=== PATIENT | female | born 1960 | race Caucasian/White ===

== ENCOUNTER 2019-10-27 14:24 | Emergency (ER) | payer MEDICAID ==
[~2019-10-27] VITALS: Ht 162.6 cm; Wt 96.7 kg
[~2019-10-27 14:24] MED LIST: ARIP30TA7 PO; LAMO200T10 PO; MELO7.5T12 PO; METH500T PO; OMEP20CA15 PO; TRAM50TA2 PO; TRAZ-256 PO
[2019-10-27] MEDS ORDERED: HYDROcodone/acetaminophen 5mg/325mg tablet PO ONE (17:45)
[2019-10-27] MEDS ORDERED: ondansetron 4mg rapidly disintigrating tab PO ONE (17:45)
[2019-10-27 17:46] VITALS: BP 113/66
== END 2019-10-27 17:58 | disposition home or self-care (01) ==
LOC: ER 14:25
DX: R60.0 Localized edema (principal); J44.9 Chronic obstructive pulmonary disease, unspecified; I48.91 Unspecified atrial fibrillation; F20.9 Schizophrenia, unspecified; G89.29 Other chronic pain; F12.90 Cannabis use, unspecified, uncomplicated; Z87.442 Personal history of urinary calculi; Z86.73 Personal history of transient ischemic attack (TIA), and cerebral infarction without residual deficits; Z98.51 Tubal ligation status; Z98.890 Other specified postprocedural states; Z88.1 Allergy status to other antibiotic agents; Z88.8 Allergy status to other drugs, medicaments and biological substances; Z79.899 Other long term (current) drug therapy
CPT/HCPCS: 93971; 99284

== ENCOUNTER 2019-11-20 10:59 | Inpatient (IN) | payer MEDICAID ==
[~2019-11-20] VITALS: Ht 162.6 cm; Wt 97.7 kg
[2019-11-20] MEDS: normal saline 1000ml 1,000 ML IV SCH ×2 (03:00→15:31)
[2019-11-20] MEDS ORDERED: MIDAZolam 5mg/ml 2ml vial IV ONE (11:10)
[2019-11-20] MEDS ORDERED: fentaNYL/PF 50MCG/1 ML 2ML syringe IV ONE (11:10)
--- NOTE | 2019-11-20 11:13 | NUR ---
Dr. Spring at bedside. Pt on manager cardiac. Pt given 12mg adenosine IVP by provider at 1108 Pt given 150mg amiodarone IVP by provider 1107 Pt HR not at 123
--- NOTE | 2019-11-20 11:16 | NUR ---
150 mg amio Addendum: 11/20/19 at 1116 by [email or web address] 150mg amiodarone IVP given by provider. Pt tolerated well.
--- NOTE | 2019-11-20 11:30 | NUR ---
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 PATIENT DEVELOPED ABNORMAL HEART RHYTHM OF V-TACH AND WAS CARDIOVERTED WITH 100 J PRIOR TO ARRIVAL.
[2019-11-20] MEDS ORDERED: amiodarone/D5 360MG/200ML BAG 200 ML IV SCH ×2 (11:35→12:10)
[2019-11-20] MEDS ORDERED: magnesium 2GM in 50ml NS 50 ML IV ONE (12:10)
[2019-11-20 12:41] LABS: BASOPHILS % (AUTO) 0.7 % (0-1); EOSINOPHILS # (AUTO) 0.3 X10'3 (0-0.9); EOSINOPHILS % (AUTO) 4.6 % (0-6); HEMATOCRIT 34.9 % (35.0-45.0); LYMPHOCYTES # (AUTO) 1.2 X10'3 (1.1-4.8); LYMPHOCYTES % (AUTO) 16.7 % (21-51); MEAN CORPUSCULAR HEMOGLOBIN 30.4 PG (27.0-31.0); MEAN CORPUSCULAR HGB CONC 34.4 g/dL (33.0-36.5); MEAN CORPUSCULAR VOLUME 88.5 FL (78-98); MEAN PLATELET VOLUME 8.5 FL (7.4-10.4); MONOCYTES # (AUTO) 1.1 X10'3 (0-0.9); MONOCYTES % (AUTO) 15.4 % (2-12); NEUTROPHILS # (AUTO) 4.4 X10'3 (1.8-7.7); NEUTROPHILS % (AUTO) 62.6 % (42-75); PLATELET COUNT 195 X10'3 (140-440); RED BLOOD COUNT 3.95 X10'6 (4.20-5.60); RED CELL DISTRIBUTION WIDTH 13.8 % (11.5-14.5); WHITE BLOOD COUNT 7.1 X10'3 (4.5-11.0)
[2019-11-20 12:53] LABS: ALANINE AMINOTRANSFERASE 16 U/L (12-78); ALBUMIN 3.4 G/DL (3.4-5.0); ALKALINE PHOSPHATASE 105 IU/L (46-116); ANION GAP 8 (8-16); ASPARTATE AMINO TRANSFERASE 23 U/L (10-37); BILIRUBIN,TOTAL 0.4 MG/DL (0.1-1.0); BLOOD UREA NITROGEN 9 MG/DL (7-18); BUN/CREATININE RATIO 6.9 (6.6-38.0); CALCIUM 8.2 MG/DL (8.5-10.1); CHLORIDE 109 MMOL/L (99-107); CREATININE 1.31 MG/DL (0.40-0.90); GLUCOSE 106 MG/DL (70-104); MAGNESIUM 2.1 MG/DL (1.5-2.4); POTASSIUM 3.6 MMOL/L (3.5-5.1); SODIUM 141 MMOL/L (135-145); TOTAL CARBON DIOXIDE 24.3 MMOL/L (24-32); TOTAL PROTEIN 6.7 G/DL (6.4-8.2); eGFR 42 ML/MIN
[2019-11-20] MEDS ORDERED: ESZO3TAB44 PO (13:30)
[2019-11-20] MEDS ORDERED: OXYB10TA30 PO (13:30)
[2019-11-20] MEDS ORDERED: LAMO200T10 PO (13:30)
[2019-11-20] MEDS ORDERED: ROPI2TAB7 PO (13:30)
[2019-11-20] MEDS ORDERED: GABA-532 PO (13:30)
[2019-11-20] MEDS ORDERED: LURA120T PO (13:30)
[2019-11-20] MEDS ORDERED: OMEP-50 PO (13:30)
[2019-11-20] MEDS ORDERED: METH500T6 PO (13:30)
[2019-11-20] MEDS ORDERED: PROP20TA6 PO (13:30)
[2019-11-20] MEDS ORDERED: ALBU18HF2 PO (13:30)
[2019-11-20] MEDS ORDERED: TRAZ-256 PO (13:31)
[2019-11-20] MEDS ORDERED: magnesium 4gm in 100ml NS 100 ML IV PRN (13:50)
[2019-11-20] MEDS ORDERED: acetaminophen 325mg tablet PO PRN (13:50)
[2019-11-20] MEDS ORDERED: potassium CL 10mEq/100ml bag 100 ML IV PRN ×2 (13:50)
[2019-11-20] MEDS ORDERED: ipratropium/albuterol 3ml nebule NEB PRN ×2 (13:50)
[2019-11-20] MEDS ORDERED: magnesium Cl slow-release 64mg tablet PO PRN (13:50)
[2019-11-20] MEDS ORDERED: magnesium 2GM in 50ml NS 50 ML IV PRN (13:50)
[2019-11-20] MEDS ORDERED: ondansetron/PF 4mg/2ml inj IV PRN (13:50)
[2019-11-20] MEDS ORDERED: potassium Cl 20 mEq SR tablet PO PRN ×2 (13:50)
[2019-11-20] MEDS ORDERED: oseltamivir phos 75mg capsule PO ONE (14:05)
[2019-11-20] MEDS ORDERED: acetaminophen 325mg tablet PO ONE (14:05)
--- NOTE | 2019-11-20 15:48 | NUR ---
Patient in room ED 2. I have received report from Norah WILKINSON and had the opportunity to ask questions and assume patient care. Awaiting patient's arrival to the unit.
[2019-11-20] MEDS ORDERED: cyclobenzaprine 10mg tablet PO PRN (17:25)
--- NOTE | 2019-11-20 18:18 | NUR ---
Problems reprioritized. Patient report given, questions answered & plan of care reviewed with Nena WILKINSON.
[2019-11-20 18:30] VITALS: BP 96/72
--- NOTE | 2019-11-20 18:30 | NUR ---
Patient in room PCU 3019. I have received report from Emmy WILKINSON and had the opportunity to ask questions and assume patient care.
[2019-11-20 18:55] VITALS: BP 119/67
[2019-11-20] MEDS: amiodarone/D5 360MG/200ML BAG 200 ML IV SCH ×2 (19:42→19:53)
[2019-11-20] MEDS ORDERED: propranolol 10mg tablet PO SCH (20:00)
[2019-11-20] MEDS: K and/or MAG REPLACEMENT MC SCH (20:00)
[2019-11-20] MEDS ORDERED: heparin, porcine 5000 units/ml vial SQ SCH (20:00)
[2019-11-20] MEDS: docusate sod 100mg capsule PO SCH (21:07)
[2019-11-20] MEDS: lamoTRIgine 100mg tablet PO SCH (21:08)
[2019-11-20] MEDS: traZODone 50mg tablet PO SCH (21:08)
[2019-11-20] MEDS: gabapentin 300mg capsule PO PRN (21:09)
[2019-11-20] MEDS: zolpidem 5mg tablet PO PRN (21:09)
[2019-11-20] MEDS: oxybutynin 5mg tablet PO SCH (21:10)
--- NOTE | 2019-11-20 21:34 | NUR ---
DR. Ortiz CALLED AND WOULD LIKE AMIODORONE 200 PO BID FOR 2 WEEKS THEN 200 MG PO DAILY. PLEASE MAKE SURE THIS IS ORDERED ON DC PER DR ORTIZ
[2019-11-20 22:40] VITALS: BP 110/63
[2019-11-21] VITALS (16 sets, daily range): BP systolic 98–128; BP diastolic 61–73
--- NOTE | 2019-11-21 06:16 | NUR ---
Problems reprioritized. Patient report given, questions answered & plan of care reviewed with Tomas ford.
--- NOTE | 2019-11-21 06:23 | NUR ---
Patient in room PCU 3019. I have received report from Nena WILKINSON and had the opportunity to ask questions and assume patient care.
[2019-11-21 07:01] LABS: BASOPHILS % (AUTO) 0.7 % (0-1); EOSINOPHILS # (AUTO) 0.5 X10'3 (0-0.9); EOSINOPHILS % (AUTO) 8.1 % (0-6); HEMATOCRIT 32.4 % (35.0-45.0); HEMOGLOBIN 10.9 g/dl (12.0-16.0); LYMPHOCYTES # (AUTO) 1.7 X10'3 (1.1-4.8); LYMPHOCYTES % (AUTO) 28.4 % (21-51); MEAN CORPUSCULAR HEMOGLOBIN 30.3 PG (27.0-31.0); MEAN CORPUSCULAR HGB CONC 33.6 g/dL (33.0-36.5); MEAN PLATELET VOLUME 9.2 FL (7.4-10.4); MONOCYTES # (AUTO) 0.7 X10'3 (0-0.9); MONOCYTES % (AUTO) 12.6 % (2-12); NEUTROPHILS % (AUTO) 50.2 % (42-75); PLATELET COUNT 187 X10'3 (140-440); RED CELL DISTRIBUTION WIDTH 14.3 % (11.5-14.5); WHITE BLOOD COUNT 5.9 X10'3 (4.5-11.0)
[2019-11-21 07:05] LABS: ALBUMIN 3.1 G/DL (3.4-5.0); ANION GAP 7 (8-16); BLOOD UREA NITROGEN 9 MG/DL (7-18); BUN/CREATININE RATIO 8.6 (6.6-38.0); CALCIUM 8.1 MG/DL (8.5-10.1); CHLORIDE 113 MMOL/L (99-107); CREATININE 1.05 MG/DL (0.40-0.90); GLUCOSE 93 MG/DL (70-104); MAGNESIUM 2.4 MG/DL (1.5-2.4); SODIUM 145 MMOL/L (135-145); TOTAL CARBON DIOXIDE 25.1 MMOL/L (24-32); eGFR 54 ML/MIN
[2019-11-21] MEDS: K and/or MAG REPLACEMENT MC SCH ×2 (07:15→20:00)
[2019-11-21] MEDS: ROPINIRole 1mg tablet PO SCH (07:34)
[2019-11-21] MEDS: propranolol 10mg tablet PO SCH ×2 (07:34→20:49)
[2019-11-21] MEDS: pantoprazole 40mg Tablet.DR PO SCH (07:35)
[2019-11-21] MEDS: oseltamivir phos 75mg capsule PO SCH (07:35)
[2019-11-21] MEDS: docusate sod 100mg capsule PO SCH ×2 (07:35→20:46)
[2019-11-21] MEDS: apixaban 5mg tablet PO SCH ×2 (07:35→20:47)
[2019-11-21] MEDS: lurasidone 60mg tablet PO SCH (07:35)
[2019-11-21] MEDS: lamoTRIgine 100mg tablet PO SCH ×2 (07:35→20:50)
[2019-11-21] MEDS: oxybutynin 5mg tablet PO SCH ×2 (07:36→20:46)
[2019-11-21] MEDS: amiodarone 200mg tablet PO SCH ×2 (07:37→20:49)
[2019-11-21] MEDS: normal saline 1000ml 1,000 ML IV SCH ×2 (09:50→19:50)
[2019-11-21] MEDS ORDERED: nitroGLYCERIN 0.4mg SUBLingual tab SL PRN (10:00)
[2019-11-21] MEDS ORDERED: regadenoson 0.4mg/5ml syringe IV PRN (10:00)
[2019-11-21] MEDS ORDERED: aminophylline 250mg/10ml inj. IV PRN (10:00)
[2019-11-21] MEDS ORDERED: metoprolol tartrate 1mg/ml inj IV PRN (10:00)
--- NOTE | 2019-11-21 11:37 | NUR ---
Page sent to [facility] nurse 1979 Kavita Hopson: Any chance you can DART her for me? Thank you [phone]
[2019-11-21] MEDS: acetaminophen 325mg tablet PO PRN ×2 (16:47→22:44)
--- NOTE | 2019-11-21 18:10 | NUR ---
Patient in room PCU 3019. I have received report from Emmy WILKINSON and had the opportunity to ask questions and assume patient care.
--- NOTE | 2019-11-21 18:33 | NUR ---
Problems reprioritized. Patient report given, questions answered & plan of care reviewed with Nena WILKINSON.
[2019-11-21] MEDS: gabapentin 300mg capsule PO PRN (20:47)
[2019-11-21] MEDS: traZODone 50mg tablet PO SCH (20:49)
[2019-11-21] MEDS: zolpidem 5mg tablet PO PRN (20:54)
[2019-11-21 21:25] LABS: URINE AMPHETAMINE SCREEN NEGATIVE (Neg); URINE BARBITUATE SCREEN NEGATIVE (Neg); URINE BENZODIAZEPINES SCREEN NEGATIVE (Neg); URINE CANNABINOID SCREEN POSITIVE (Neg); URINE COCAINE SCREEN NEGATIVE (Neg); URINE METHADONE SCREEN NEGATIVE (Neg); URINE OPIATE SCREEN NEGATIVE (Neg); URINE PHENCYCLIDINE SCREEN NEGATIVE (Neg)
[2019-11-22 02:00] VITALS: BP 106/45
[2019-11-22 05:06] LABS: BASOPHILS % (AUTO) 0.6 % (0-1); EOSINOPHILS # (AUTO) 0.5 X10'3 (0-0.9); EOSINOPHILS % (AUTO) 8.2 % (0-6); HEMATOCRIT 33.5 % (35.0-45.0); HEMOGLOBIN 11.5 g/dl (12.0-16.0); LYMPHOCYTES # (AUTO) 2.2 X10'3 (1.1-4.8); LYMPHOCYTES % (AUTO) 34.5 % (21-51); MEAN CORPUSCULAR HEMOGLOBIN 30.6 PG (27.0-31.0); MEAN CORPUSCULAR HGB CONC 34.3 g/dL (33.0-36.5); MEAN CORPUSCULAR VOLUME 89.4 FL (78-98); MEAN PLATELET VOLUME 8.5 FL (7.4-10.4); MONOCYTES # (AUTO) 0.6 X10'3 (0-0.9); MONOCYTES % (AUTO) 10.2 % (2-12); NEUTROPHILS # (AUTO) 2.9 X10'3 (1.8-7.7); NEUTROPHILS % (AUTO) 46.5 % (42-75); PLATELET COUNT 238 X10'3 (140-440); RED BLOOD COUNT 3.74 X10'6 (4.20-5.60); RED CELL DISTRIBUTION WIDTH 14.1 % (11.5-14.5); WHITE BLOOD COUNT 6.3 X10'3 (4.5-11.0)
[2019-11-22 05:08] LABS: ALBUMIN 3.3 G/DL (3.4-5.0); ANION GAP 6 (8-16); BLOOD UREA NITROGEN 9 MG/DL (7-18); BUN/CREATININE RATIO 7.6 (6.6-38.0); CALCIUM 8.4 MG/DL (8.5-10.1); CHLORIDE 110 MMOL/L (99-107); CREATININE 1.19 MG/DL (0.40-0.90); GLUCOSE 82 MG/DL (70-104); POTASSIUM 3.8 MMOL/L (3.5-5.1); SODIUM 144 MMOL/L (135-145); TOTAL CARBON DIOXIDE 27.7 MMOL/L (24-32); eGFR 47 ML/MIN
[2019-11-22 06:00] VITALS: BP 102/49
--- NOTE | 2019-11-22 06:25 | NUR ---
Problems reprioritized. Patient report given, questions answered & plan of care reviewed with Paradise WILKINSON.
--- NOTE | 2019-11-22 06:25 | NUR ---
Patient in room PCU 3019. I have received report from MINH Barrett and had the opportunity to ask questions and assume patient care.
[2019-11-22] MEDS: lurasidone 60mg tablet PO SCH (07:21)
[2019-11-22] MEDS: pantoprazole 40mg Tablet.DR PO SCH (07:22)
[2019-11-22] MEDS: docusate sod 100mg capsule PO SCH (07:22)
[2019-11-22] MEDS: ROPINIRole 1mg tablet PO SCH (07:22)
[2019-11-22] MEDS: amiodarone 200mg tablet PO SCH (07:22)
[2019-11-22] MEDS: oxybutynin 5mg tablet PO SCH (07:22)
[2019-11-22] MEDS: propranolol 10mg tablet PO SCH (07:23)
[2019-11-22] MEDS: lamoTRIgine 100mg tablet PO SCH (07:23)
[2019-11-22] MEDS: oseltamivir phos 75mg capsule PO SCH (07:25)
[2019-11-22] MEDS: normal saline 1000ml 1,000 ML IV SCH (07:26)
[2019-11-22] MEDS ORDERED: verapamil 2.5 mg/ml inj IV ONE (07:38)
[2019-11-22] MEDS ORDERED: nitroGLYCERIN-Tridil 50MG/D5W 250 ML IV ONE (07:38)
[2019-11-22] MEDS ORDERED: iohexol 350 MG/ML 50ML vial IV ONE (07:39)
[2019-11-22] MEDS ORDERED: LIDOcaine 1% (10mg/ml)w/preservative injection 20ml MDV ONE (07:39)
[2019-11-22] MEDS ORDERED: fentaNYL/PF 50MCG/1 ML 2ML syringe ONE (07:39)
[2019-11-22] MEDS ORDERED: midazolam 2 mg/2 ml injection ONE (07:39)
[2019-11-22] MEDS ORDERED: heparin 1,000unit/ml 10ml vial 10 ML ONE (07:39)
[2019-11-22] MEDS ORDERED: iohexol 350MG/ML 100ml bottle IV ONE (07:39)
[2019-11-22] MEDS: K and/or MAG REPLACEMENT MC SCH (08:00)
[2019-11-22] MEDS: apixaban 5mg tablet PO SCH (08:00)
[2019-11-22 11:00] VITALS: BP 106/67
[2019-11-22] MEDS ORDERED: ALBU8.5H8 INH (12:12)
[2019-11-22] MEDS ORDERED: NITR0.4T51 SL (12:12)
[2019-11-22] MEDS ORDERED: AMIO200T61 PO (12:12)
[2019-11-22] MEDS ORDERED: PROP10TA10 PO (12:12)
[2019-11-22] MEDS ORDERED: ASPI-1264 PO (12:12)
[2019-11-22] MEDS ORDERED: DOCU100C40 PO (12:12)
[2019-11-22] MEDS ORDERED: TAM75C PO (12:12)
--- NOTE | 2019-11-22 13:50 | NUR ---
Patient stable for discharge per MD orders. All instructions were discussed with patient and daughter, all questions were answered. Informed patient to follow up with primary care physician within 2-3 days, make an appointment with a client experience consultant, also informed them that Dr Martins wanted me to instruct patient and daughter that patient will need a pulmonary function test once a year. Informed that prescriptions were e-scripted over to [facility]. All belongings were collected and sent with patient. PIV discontinued, cannula intact. Tele discontinued, television actor notified. I wheeled the patient to lobby and assisted into her daughter's vehicle.
[2019-11-23 07:21] LABS: ISTAT Hct MIX 31 %PCV (35-48); ISTAT O2 SATURATION MIX VENOUS 59 % (60-80); ISTAT SOURCE MIX
== END 2019-11-22 13:50 | disposition home or self-care (01) | DRG 192 ==
LOC: ER 11:00 → ED HOLD 13:50 → UNDOADMIN 14:08 → PCU 3S 16:10 → ED HOLD 16:10
PROVIDERS: ADMIT Internal Medicine; ATTEND Family Medicine
PROC: 4A023N8 Measurement of Cardiac Sampling and Pressure, Bilateral, Percutaneous Approach (ICD-10-PCS; principal; 2019-11-21)
PROC: B2111ZZ Fluoroscopy of Multiple Coronary Arteries using Low Osmolar Contrast (ICD-10-PCS; 2019-11-21)
PROC: B2151ZZ Fluoroscopy of Left Heart using Low Osmolar Contrast (ICD-10-PCS; 2019-11-21)
PROC: 4A02XM4 Measurement of Cardiac Total Activity, External Approach (ICD-10-PCS; 2019-11-21)
PROC: 3E033HZ Introduction of Radioactive Substance into Peripheral Vein, Percutaneous Approach (ICD-10-PCS; 2019-11-21)
DX: I47.1 Supraventricular tachycardia (principal); F20.9 Schizophrenia, unspecified; I48.92 Unspecified atrial flutter; Z86.74 Personal history of sudden cardiac arrest; G25.81 Restless legs syndrome; I48.91 Unspecified atrial fibrillation; F31.9 Bipolar disorder, unspecified; G43.909 Migraine, unspecified, not intractable, without status migrainosus; G89.29 Other chronic pain; I10 Essential (primary) hypertension; I44.7 Left bundle-branch block, unspecified; J10.1 Influenza due to other identified influenza virus with other respiratory manifestations; J44.9 Chronic obstructive pulmonary disease, unspecified; K21.9 Gastro-esophageal reflux disease without esophagitis; R32 Unspecified urinary incontinence; Z79.82 Long term (current) use of aspirin; Z79.899 Other long term (current) drug therapy; Z86.73 Personal history of transient ischemic attack (TIA), and cerebral infarction without residual deficits; Z87.442 Personal history of urinary calculi; Z87.891 Personal history of nicotine dependence; Z98.51 Tubal ligation status
CPT/HCPCS: 36415; 71045; 78452; 80048; 80053; 80305; 82803; 83735; 84443; 84484; 85014; 85025; 85347; 87502; 87503; 93005; 93017; 93306; 93460; 94760; 96365; 96368; 99152; 99153; 99291; A4620; A4663; A5120; A6258; A9500; C1769; C1894; G0378; J1644; J2001; J2250; J2405; J2785; J3010; J3475; J3490; J7030; J7040; Q9967

== ENCOUNTER 2020-01-30 14:39 | Emergency (ER) | payer MEDICAID ==
[~2020-01-30] VITALS: Ht 162.6 cm; Wt 92.2 kg
[~2020-01-30 14:39] MED LIST changes: +ALBU8.5H8 INH; +APIX5TAB3 PO; -ARIP30TA7 PO; +DOCU100C40 PO; +ESZO3TAB44 PO; +FLEC100T35 PO; +LURA120T PO; -MELO7.5T12 PO; -METH500T PO; +METH500T6 PO; +NITR0.4T51 SL; +OMEP-50 PO; -OMEP20CA15 PO; +OXYB10TA30 PO; +PROP10TA10 PO; -TRAM50TA2 PO
[2020-01-30 14:41] VITALS: BP 112/63
[2020-01-30] MEDS ORDERED: HYDR-3965 PO (14:58)
[2020-01-30] MEDS ORDERED: ONDA4TAB6 PO (14:58)
[2020-01-30] MEDS ORDERED: METH4TAB81 PO (14:58)
[2020-01-30] MEDS ORDERED: AMOX500C2 PO (14:58)
[2020-01-30] MEDS ORDERED: acetaminophen 325mg tablet PO ONE (15:00)
== END 2020-01-30 15:31 | disposition home or self-care (01) ==
LOC: ER 14:40
DX: K08.89 Other specified disorders of teeth and supporting structures (principal); I96 Gangrene, not elsewhere classified; I48.91 Unspecified atrial fibrillation; J44.9 Chronic obstructive pulmonary disease, unspecified; K21.9 Gastro-esophageal reflux disease without esophagitis; G89.29 Other chronic pain; F32.9 Major depressive disorder, single episode, unspecified; F20.9 Schizophrenia, unspecified; F12.90 Cannabis use, unspecified, uncomplicated; Z86.73 Personal history of transient ischemic attack (TIA), and cerebral infarction without residual deficits; Z87.442 Personal history of urinary calculi; Z87.440 Personal history of urinary (tract) infections; Z98.51 Tubal ligation status; Z98.890 Other specified postprocedural states; Z88.1 Allergy status to other antibiotic agents; Z79.2 Long term (current) use of antibiotics; Z79.899 Other long term (current) drug therapy
CPT/HCPCS: 99283

== ENCOUNTER 2020-02-22 05:26 | Day surgery (SDC) | payer MEDICAID ==
[2020-01-17 16:32] LABS: BASOPHILS % (AUTO) 0.5 % (0-1); EOSINOPHILS # (AUTO) 0.2 X10'3 (0-0.9); EOSINOPHILS % (AUTO) 2.4 % (0-6); LYMPHOCYTES # (AUTO) 2.3 X10'3 (1.1-4.8); MEAN CORPUSCULAR HEMOGLOBIN 29.4 PG (27.0-31.0); MEAN CORPUSCULAR HGB CONC 32.8 g/dL (33.0-36.5); MEAN CORPUSCULAR VOLUME 89.7 FL (78-98); MEAN PLATELET VOLUME 9.1 FL (7.4-10.4); MONOCYTES # (AUTO) 0.6 X10'3 (0-0.9); MONOCYTES % (AUTO) 6.8 % (2-12); NEUTROPHILS # (AUTO) 5.7 X10'3 (1.8-7.7); NEUTROPHILS % (AUTO) 64.3 % (42-75); PRE OP HEMATOCRIT 40.6 % (35.0-45.0); PRE OP HEMOGLOBIN 13.3 g/dL (12.0-16.0); PRE OP PLATELET COUNT 258 X10'3 (140-440); RED BLOOD COUNT 4.53 X10'6 (4.20-5.60); RED CELL DISTRIBUTION WIDTH 14.7 % (11.5-14.5)
[2020-01-17 16:55] LABS: PRE OP INR 1.1 INR; PRE OP PROTIME 11.2 SECONDS (9.0-12.0)
[2020-01-17 17:24] LABS: ALBUMIN 3.9 G/DL (3.4-5.0); ALBUMIN/GLOBULIN RATIO 1.1 (1.1-1.5); ALKALINE PHOSPHATASE 119 IU/L (46-116); BLOOD UREA NITROGEN 15 MG/DL (7-18); BUN/CREATININE RATIO 10.7 (6.6-38.0); CALCIUM 9.2 MG/DL (8.5-10.1); CHLORIDE 104 MMOL/L (99-107); PRE OP ALT 18 U/L (30-65); PRE OP ANION GAP 8 (8-16); PRE OP AST 11 U/L (10-37); PRE OP BILIRUB, TOTAL 0.4 MG/DL (0.0-1.0); PRE OP GLUCOSE 76 MG/DL (70-104); PRE OP POTASSIUM 3.6 MMOL/L (3.4-5.1); PRE OP SODIUM 140 MMOL/L (135-145); TOTAL CARBON DIOXIDE 28.5 MMOL/L (24-32); TOTAL PROTEIN 7.4 G/DL (6.4-8.2); eGFR 39 ML/MIN
[2020-02-16 10:22] LABS: BASOPHILS # (AUTO) 0.1 X10'3 (0-0.2); BASOPHILS % (AUTO) 0.7 % (0-1); EOSINOPHILS # (AUTO) 0.3 X10'3 (0-0.9); EOSINOPHILS % (AUTO) 3.8 % (0-6); LYMPHOCYTES # (AUTO) 1.6 X10'3 (1.1-4.8); LYMPHOCYTES % (AUTO) 17.5 % (21-51); MEAN CORPUSCULAR HEMOGLOBIN 30.2 PG (27.0-31.0); MEAN CORPUSCULAR HGB CONC 33.8 g/dL (33.0-36.5); MEAN CORPUSCULAR VOLUME 89.5 FL (78-98); MEAN PLATELET VOLUME 8.7 FL (7.4-10.4); MONOCYTES # (AUTO) 0.7 X10'3 (0-0.9); MONOCYTES % (AUTO) 7.6 % (2-12); NEUTROPHILS # (AUTO) 6.3 X10'3 (1.8-7.7); NEUTROPHILS % (AUTO) 70.4 % (42-75); PRE OP HEMATOCRIT 38.3 % (35.0-45.0); PRE OP HEMOGLOBIN 12.9 g/dL (12.0-16.0); PRE OP PLATELET COUNT 260 X10'3 (140-440); RED BLOOD COUNT 4.28 X10'6 (4.20-5.60); RED CELL DISTRIBUTION WIDTH 15.1 % (11.5-14.5)
[2020-02-16 10:46] LABS: ALBUMIN 3.6 G/DL (3.4-5.0); ALKALINE PHOSPHATASE 97 IU/L (46-116); BLOOD UREA NITROGEN 14 MG/DL (7-18); BUN/CREATININE RATIO 10.9 (6.6-38.0); CALCIUM 8.8 MG/DL (8.5-10.1); CHLORIDE 106 MMOL/L (99-107); CREATININE 1.29 MG/DL (0.40-0.90); PRE OP ALT 15 U/L (30-65); PRE OP ANION GAP 6 (8-16); PRE OP AST 15 U/L (10-37); PRE OP BILIRUB, TOTAL 0.4 MG/DL (0.0-1.0); PRE OP GLUCOSE 89 MG/DL (70-104); PRE OP POTASSIUM 4.3 MMOL/L (3.4-5.1); PRE OP SODIUM 140 MMOL/L (135-145); TOTAL CARBON DIOXIDE 28.4 MMOL/L (24-32); TOTAL PROTEIN 7.1 G/DL (6.4-8.2); eGFR 43 ML/MIN
[~2020-02-22] VITALS: Ht 162.6 cm; Wt 90.3 kg
[2020-02-22] VITALS (10 sets, daily range): BP systolic 104–124; BP diastolic 61–77
[~2020-02-22 05:26] MED LIST changes: +ringers solution, lacted 1,000 ML IV SCH
[2020-02-22] MEDS ORDERED: DOCUMENT DATE & TIME OF BETA-BLOCKER PO ONE (05:30)
[2020-02-22] MEDS ORDERED: clindamycin-Cleocin 900mg/D5W 50 ML IV ONE (05:30)
[2020-02-22] MEDS ORDERED: famotidine 20mg tablet PO ONE (05:30)
[2020-02-22] MEDS ORDERED: vancomycin 1,500 MG in NS 500ml IV soln IV ONE (05:30)
[2020-02-22] MEDS ORDERED: LIDOcaine 1% (10mg/ml) 2ml vial ONE (06:19)
[2020-02-22] MEDS ORDERED: BUPIVAcaine/PF 2.5 mg/ml (0.25%) 30ml vial ONE (06:48)
[2020-02-22] MEDS ORDERED: triamcinolone acetonide 40mg/ml inj ONE (06:48)
[2020-02-22 07:18] LABS: PRE OP PROTIME 10.2 SECONDS (9.0-12.0)
[2020-02-22] MEDS ORDERED: sevoflurane 250ml liquid IH ONE (07:20)
[2020-02-22] MEDS ORDERED: fentaNYL/PF 50MCG/1 ML 2ML syringe ONE (07:23)
[2020-02-22] MEDS ORDERED: midazolam 2 mg/2 ml injection ONE (07:23)
[2020-02-22] MEDS ORDERED: LIDOcaine 2% (20mg/ml) 5ml vial ONE (07:24)
[2020-02-22] MEDS ORDERED: propofol inj 20 ML IV ONE (07:24)
[2020-02-22] MEDS ORDERED: dexamethasone sod phosphate 4mg/ml inj. ONE (07:34)
[2020-02-22] MEDS ORDERED: ondansetron/PF 4mg/2ml inj ONE (07:34)
[2020-02-22] MEDS ORDERED: ondansetron/PF 4mg/2ml inj IV PRN (07:50)
[2020-02-22] MEDS ORDERED: morphine 2 MG/ML inj. syringe IV PRN (07:50)
[2020-02-22] MEDS ORDERED: ringers solution, lacted 1,000 ML IV SCH (07:50)
[2020-02-22] MEDS ORDERED: morphine 4 MG/ML inj SYRINge IV PRN (07:50)
[2020-02-22] MEDS ORDERED: proCHLORperazine 10 MG/2 ml inj IV PRN (07:50)
[2020-02-22] MEDS ORDERED: meperidine/PF 25mg/ml syringe IV PRN ×3 (07:50)
[2020-02-22] MEDS ORDERED: ketorolac trometh. 30mg/ml inj. ONE (08:17)
--- NOTE | 2020-02-22 08:35 | NUR ---
Received from OR via BED, accompanied by Anesthesiologist DR PHILLIPS-- and report given by Anesthesiolgist. PATIENT A&OX4, DENIES PAIN, V/S WNL, NEUROVASCULAR CHECKS INTACT, 20G PIV LUE, SCD ON, DRESSING LEFT KNEE CDI
--- NOTE | 2020-02-22 09:45 | NUR ---
PATIENT A&OX4, DENIES PAIN, V/S WNL, NEUROVASCULAR CHECKS INTACT, 20G PIV LUE D/C, SCD OFF, DRESSING TO LEFT KNEE CDI ELEVATED WITH ICEBAG APPLIED. I HAVE REVIEWED D/C INSTRUCTIONS WITH PATIENT AND FAMILY AND THEY HAVE VERBALIZED UNDERSTANDING. PATIENT D/C HOME WITH ALL BELONGINGS AND FAMILY GAVE TRANSPORT HOME.
== END 2020-02-22 09:45 | disposition home or self-care (01) ==
LOC: PAS 05:26
PROVIDERS: ATTEND Orthopaedic Surgery
DX: S83.272A Complex tear of lateral meniscus, current injury, left knee, initial encounter (principal); S83.232A Complex tear of medial meniscus, current injury, left knee, initial encounter; M94.262 Chondromalacia, left knee; F41.9 Anxiety disorder, unspecified; G40.909 Epilepsy, unspecified, not intractable, without status epilepticus; K21.9 Gastro-esophageal reflux disease without esophagitis; G47.33 Obstructive sleep apnea (adult) (pediatric); M17.0 Bilateral primary osteoarthritis of knee; I25.10 Atherosclerotic heart disease of native coronary artery without angina pectoris; G43.909 Migraine, unspecified, not intractable, without status migrainosus; I10 Essential (primary) hypertension; I25.2 Old myocardial infarction; F31.9 Bipolar disorder, unspecified; E66.01 Morbid (severe) obesity due to excess calories; Z68.35 Body mass index [BMI] 35.0-35.9, adult; I48.91 Unspecified atrial fibrillation; Z88.1 Allergy status to other antibiotic agents; Z79.899 Other long term (current) drug therapy; Z11.59 Encounter for screening for other viral diseases; Z79.01 Long term (current) use of anticoagulants; Z87.891 Personal history of nicotine dependence; Z82.49 Family history of ischemic heart disease and other diseases of the circulatory system; X58.XXXA Exposure to other specified factors, initial encounter; Y93.89 Activity, other specified; Y92.89 Other specified places as the place of occurrence of the external cause; Y99.8 Other external cause status
CPT/HCPCS: 29873; 29879; 29880; 36415; 71046; 80053; 82948; 85025; 85610; 85730; 87635; 93005; J1100; J1885; J2001; J2250; J2405; J2704; J3010; J3301; J3370; J3490; J7040; U0003; A4215; A4618; A6250; A6449; A7000; J7120

== ENCOUNTER 2020-03-28 05:48 | Emergency (ER) | payer MEDICAID ==
[~2020-03-28] VITALS: Ht 162.6 cm; Wt 86.4 kg
[~2020-03-28 05:48] MED LIST changes: -ringers solution, lacted 1,000 ML IV SCH
[2020-03-28] MEDS ORDERED: LIDOcaine 1% W/epiNEPHrine 1:200,000 10ml vial IJ ONE (06:05)
[2020-03-28] MEDS ORDERED: TETanus/Pertussis (Acell)/Diphther VAC/PF (Tdap-Adult) 0.5ml syringe IMVAC ONE (06:05)
[2020-03-28] MEDS ORDERED: SULF1TAB49 PO (06:51)
[2020-03-28] MEDS ORDERED: bacitracin 15gm ointment TP ONE (07:10)
[2020-03-28] MEDS ORDERED: sulfamethoxazole/trimethoprim DS (800/160mg) tablet PO ONE (07:10)
[2020-03-28] MEDS ORDERED: acetaminophen 325mg tablet PO ONE (07:10)
[2020-03-28 08:47] VITALS: BP 146/85
== END 2020-03-28 07:30 | disposition home or self-care (01) ==
LOC: ER 05:49
DX: S61.211A Laceration without foreign body of left index finger without damage to nail, initial encounter (principal); S61.231A Puncture wound without foreign body of left index finger without damage to nail, initial encounter; I48.91 Unspecified atrial fibrillation; J44.9 Chronic obstructive pulmonary disease, unspecified; K21.9 Gastro-esophageal reflux disease without esophagitis; G89.29 Other chronic pain; F32.9 Major depressive disorder, single episode, unspecified; F20.9 Schizophrenia, unspecified; F12.90 Cannabis use, unspecified, uncomplicated; Z98.51 Tubal ligation status; Z98.890 Other specified postprocedural states; Z86.73 Personal history of transient ischemic attack (TIA), and cerebral infarction without residual deficits; Z87.442 Personal history of urinary calculi; Z88.1 Allergy status to other antibiotic agents; Z79.01 Long term (current) use of anticoagulants; Z79.899 Other long term (current) drug therapy; W26.0XXA Contact with knife, initial encounter; Y93.89 Activity, other specified; Y92.89 Other specified places as the place of occurrence of the external cause; Y99.8 Other external cause status
CPT/HCPCS: 12001; 73140; 90471; 90715; 99284

== ENCOUNTER 2020-06-20 05:36 | Day surgery (SDC) | payer MEDICAID ==
[2020-06-14 11:03] LABS: BASOPHILS # (AUTO) 0.1 X10'3 (0-0.2); BASOPHILS % (AUTO) 0.7 % (0-1); EOSINOPHILS # (AUTO) 0.4 X10'3 (0-0.9); EOSINOPHILS % (AUTO) 4.5 % (0-6); LYMPHOCYTES # (AUTO) 1.8 X10'3 (1.1-4.8); LYMPHOCYTES % (AUTO) 21.2 % (21-51); MEAN CORPUSCULAR HEMOGLOBIN 31.3 PG (27.0-31.0); MEAN CORPUSCULAR VOLUME 92.1 FL (78-98); MEAN PLATELET VOLUME 8.9 FL (7.4-10.4); MONOCYTES # (AUTO) 0.7 X10'3 (0-0.9); MONOCYTES % (AUTO) 7.8 % (2-12); NEUTROPHILS # (AUTO) 5.7 X10'3 (1.8-7.7); NEUTROPHILS % (AUTO) 65.8 % (42-75); PRE OP HEMATOCRIT 37.4 % (35.0-45.0); PRE OP HEMOGLOBIN 12.7 g/dL (12.0-16.0); PRE OP PLATELET COUNT 253 X10'3 (140-440); RED BLOOD COUNT 4.06 X10'6 (4.20-5.60); RED CELL DISTRIBUTION WIDTH 13.9 % (11.5-14.5)
[2020-06-14 11:09] LABS: PRE OP PROTIME 10.2 SECONDS (9.0-12.0)
[2020-06-14 11:11] LABS: ALBUMIN 3.8 G/DL (3.4-5.0); ALBUMIN/GLOBULIN RATIO 1.1 (1.1-1.5); ALKALINE PHOSPHATASE 106 IU/L (46-116); BLOOD UREA NITROGEN 13 MG/DL (7-18); BUN/CREATININE RATIO 9.9 (6.6-38.0); CALCIUM 9.3 MG/DL (8.5-10.1); CHLORIDE 104 MMOL/L (99-107); CREATININE 1.31 MG/DL (0.40-0.90); PRE OP ALT 21 U/L (30-65); PRE OP ANION GAP 6 (8-16); PRE OP AST 13 U/L (10-37); PRE OP BILIRUB, TOTAL 0.3 MG/DL (0.0-1.0); PRE OP GLUCOSE 94 MG/DL (70-104); PRE OP POTASSIUM 3.9 MMOL/L (3.4-5.1); PRE OP SODIUM 142 MMOL/L (135-145); TOTAL CARBON DIOXIDE 32.4 MMOL/L (24-32); TOTAL PROTEIN 7.2 G/DL (6.4-8.2); eGFR 42 ML/MIN
[~2020-06-20] VITALS: Ht 162.6 cm; Wt 86.3 kg
[2020-06-20] VITALS (8 sets, daily range): BP systolic 101–111; BP diastolic 47–62
[~2020-06-20 05:36] MED LIST changes: +ATOR20TA66 PO; -DOCU100C40 PO; +DOCUMENT DATE & TIME OF BETA-BLOCKER PO ONE; -LURA120T PO; +MESSAGE TO NURSING IV ONE; +albuterol 2.5 MG/3 ML nebule NEB ONE; +famotidine 20mg tablet PO ONE; +ringers solution, lacted 1,000 ML IV SCH; +vancomycin 1,500 MG in NS 300ml IV soln IV ONE
[2020-06-20] MEDS ORDERED: levoFLOXACIN-Levaquin 500mg/D5 100 ML IV ONE (06:30)
[2020-06-20] MEDS ORDERED: BUPIVAcaine/PF 2.5mg/ml (0.25%) 10ml vial ONE (06:48)
[2020-06-20] MEDS ORDERED: triamcinolone acetonide 40mg/ml inj ONE (06:48)
[2020-06-20] MEDS ORDERED: sevoflurane 250ml liquid IH ONE (07:08)
[2020-06-20] MEDS ORDERED: rocuronium 10mg/ml inj IV ONE (07:08)
[2020-06-20] MEDS ORDERED: fentaNYL/PF 50MCG/1 ML 2ML syringe ONE (07:13)
[2020-06-20] MEDS ORDERED: proCHLORperazine 10 MG/2 ml inj IV PRN (08:15)
[2020-06-20] MEDS ORDERED: acetaminophen 1,000mg/100ml IV 100 ML IV PRN (08:15)
[2020-06-20] MEDS ORDERED: morphine 4 MG/ML inj SYRINge IV PRN (08:15)
[2020-06-20] MEDS ORDERED: ringers solution, lacted 1,000 ML IV SCH (08:15)
[2020-06-20] MEDS ORDERED: hydrALAZINE 20mg/ml inj. IV PRN (08:15)
[2020-06-20] MEDS ORDERED: meperidine/PF 25mg/ml syringe IV PRN ×3 (08:15)
[2020-06-20] MEDS ORDERED: ondansetron/PF 4mg/2ml inj IV PRN (08:15)
[2020-06-20] MEDS ORDERED: labetalol 20mg/4ml (5mg/ml) syringe IV PRN (08:15)
[2020-06-20] MEDS ORDERED: morphine 2 MG/ML inj. syringe IV PRN (08:15)
[2020-06-20] MEDS ORDERED: propofol inj 20 ML IV ONE (08:55)
[2020-06-20] MEDS ORDERED: ROPIVAcaine 0.5% (5mg/ml) 30ml vial ONE (08:55)
[2020-06-20] MEDS ORDERED: LIDOcaine 1%/PF 5ML 10 MG/ML VIAL ONE (08:55)
[2020-06-20] MEDS ORDERED: midazolam 2 mg/2 ml injection ONE (08:55)
[2020-06-20] MEDS ORDERED: LIDOcaine 2% (20mg/ml) 5ml vial ONE (08:55)
[2020-06-20] MEDS ORDERED: dexamethasone sod phosphate 4mg/ml inj. ONE (08:56)
[2020-06-20] MEDS ORDERED: ePHEDrine 50MG/ML INJ. ONE (08:56)
[2020-06-20] MEDS ORDERED: ondansetron/PF 4mg/2ml inj ONE (08:57)
--- NOTE | 2020-06-20 09:56 | NUR ---
Received from OR via [facility] , accompanied by Anesthesiologist WESTLEY and report given by Anesthesiolgist. PATIENT WITH ANTERIOR SHOULDER DRESSING THAT IS CDI. + RADIAL PULSE TO RIGHT UE. SHOULDER IMMOBILIZER PRESENT. 20G PIOV IN LEFT UE RUNNING LR AT 100. NON VERBAL PAIN SCALE USED. 0 PAIN. PATIENT WITH VSS. 20G PIV IN LEFT UE RUNNING LR AT 100. Addendum: 06/20/20 at 1006 by Jesse Bliss RN, RN Amended: Links added.
--- NOTE | 2020-06-20 11:06 | NUR ---
PATIENT AND FAMILY AND THEY HAVE VERBALIZED UNDERSTANDING, OPPORTUNITY TO ASK QUESTIONS GIVEN AND PATIENT COMFORTABLE WITH DC. IV TAKEN OUT WITHOUT COMPLICATION. PATIENT HAS MET ALL DC CRITERIA FOR DC HOME. I HAVE REVIEWED D/C INSTRUCTIONS WITH OUT VIA WHEELCHAIR WHERE PATIENT WAS TAKEN HOME WITH ALL BELONGINGS. FAMILY GAVE PATIENT TRANSPORT HOME. DISCUSSED WITH PATIENT AND DAUGHTER ABOUT USE OF INCENTIVE SPIROMETER. BRACE AND ALL DC INSTRUCTIONS. ALL QUESTIONS ANSWERED. Addendum: 06/20/20 at 1138 by Jesse Juarez - MINH WILKINSON Amended: Links added.
== END 2020-06-20 11:06 | disposition home or self-care (01) ==
LOC: PAS 05:36
PROVIDERS: ATTEND Orthopaedic Surgery
DX: S46.011A Strain of muscle(s) and tendon(s) of the rotator cuff of right shoulder, initial encounter (principal); S43.431A Superior glenoid labrum lesion of right shoulder, initial encounter; M19.011 Primary osteoarthritis, right shoulder; I10 Essential (primary) hypertension; I25.2 Old myocardial infarction; I25.10 Atherosclerotic heart disease of native coronary artery without angina pectoris; F32.9 Major depressive disorder, single episode, unspecified; F41.9 Anxiety disorder, unspecified; G47.33 Obstructive sleep apnea (adult) (pediatric); G43.909 Migraine, unspecified, not intractable, without status migrainosus; K21.9 Gastro-esophageal reflux disease without esophagitis; G89.18 Other acute postprocedural pain; Z91.5 Personal history of self-harm; Z87.442 Personal history of urinary calculi; Z88.8 Allergy status to other drugs, medicaments and biological substances; Z88.1 Allergy status to other antibiotic agents; Z72.89 Other problems related to lifestyle; Z86.73 Personal history of transient ischemic attack (TIA), and cerebral infarction without residual deficits; Z87.891 Personal history of nicotine dependence; Z98.890 Other specified postprocedural states; X58.XXXA Exposure to other specified factors, initial encounter; Y93.89 Activity, other specified; Y92.89 Other specified places as the place of occurrence of the external cause; Y99.8 Other external cause status; Z20.828 Contact with and (suspected) exposure to other viral communicable diseases; M25.511 Pain in right shoulder
CPT/HCPCS: 23412; 29807; 29824; 29826; 36415; 64415; 76942; 80053; 82948; 85025; 85610; 85730; 87635; C1713; J1100; J1956; J2001; J2250; J2405; J2704; J3010; J3301; J3370; J3490; J7040; J7120; A4215; A4565; A4618; A6250; A6449; A7000; J2795

== ENCOUNTER 2020-12-09 15:01 | Emergency (ER) | payer MEDICAID ==
[~2020-12-09] VITALS: Ht 165.1 cm; Wt 75.8 kg
[~2020-12-09 15:01] MED LIST changes: -DOCUMENT DATE & TIME OF BETA-BLOCKER PO ONE; -MESSAGE TO NURSING IV ONE; +METH-797 PO; -METH500T6 PO; -albuterol 2.5 MG/3 ML nebule NEB ONE; -famotidine 20mg tablet PO ONE; -ringers solution, lacted 1,000 ML IV SCH; -vancomycin 1,500 MG in NS 300ml IV soln IV ONE
[2020-12-09 17:07] LABS: BASOPHILS % (AUTO) 0.4 % (0-1); EOSINOPHILS # (AUTO) 0.2 X10'3 (0-0.9); HEMATOCRIT 39.7 % (35.0-45.0); HEMOGLOBIN 13.2 g/dl (12.0-16.0); LYMPHOCYTES % (AUTO) 18.7 % (21-51); MEAN CORPUSCULAR HEMOGLOBIN 30.8 PG (27.0-31.0); MEAN CORPUSCULAR HGB CONC 33.4 g/dL (33.0-36.5); MEAN CORPUSCULAR VOLUME 92.4 FL (78-98); MEAN PLATELET VOLUME 9.1 FL (7.4-10.4); MONOCYTES # (AUTO) 0.7 X10'3 (0-0.9); MONOCYTES % (AUTO) 6.6 % (2-12); NEUTROPHILS # (AUTO) 7.7 X10'3 (1.8-7.7); NEUTROPHILS % (AUTO) 72.3 % (42-75); PLATELET COUNT 218 X10'3 (140-440); RED CELL DISTRIBUTION WIDTH 13.8 % (11.5-14.5); WHITE BLOOD COUNT 10.6 X10'3 (4.5-11.0)
[2020-12-09 17:13] VITALS: BP 124/74
[2020-12-09 17:21] LABS: ALANINE AMINOTRANSFERASE 19 U/L (12-78); ALBUMIN 4.3 G/DL (3.4-5.0); ALBUMIN/GLOBULIN RATIO 1.3 (1.1-1.5); ALKALINE PHOSPHATASE 107 IU/L (46-116); ANION GAP 9 (8-16); ASPARTATE AMINO TRANSFERASE 16 U/L (10-37); BILIRUBIN,TOTAL 0.4 MG/DL (0.1-1.0); BLOOD UREA NITROGEN 17 MG/DL (7-18); CALCIUM 9.7 MG/DL (8.5-10.1); CHLORIDE 108 MMOL/L (99-107); CREATININE 1.13 MG/DL (0.40-0.90); GLUCOSE 87 MG/DL (70-104); MAGNESIUM 2.2 MG/DL (1.5-2.4); POTASSIUM 3.6 MMOL/L (3.5-5.1); SODIUM 148 MMOL/L (135-145); TOTAL CARBON DIOXIDE 31.2 MMOL/L (24-32); TOTAL PROTEIN 7.7 G/DL (6.4-8.2); eGFR 49 ML/MIN
--- NOTE | 2020-12-09 19:07 | NUR ---
Pt resting in bed talking on phone. Cup of water given to pt per pt request.
[2020-12-09] MEDS ORDERED: normal saline 1000ML IV soln IVB ONE (19:30)
[2020-12-09] MEDS ORDERED: ketorolac tromethamine 15mg/ml inj. IV ONE (21:10)
== END 2020-12-09 21:23 | disposition home or self-care (01) ==
LOC: ER 15:02
DX: R55 Syncope and collapse (principal); R20.0 Anesthesia of skin; R53.1 Weakness; I48.91 Unspecified atrial fibrillation; J44.9 Chronic obstructive pulmonary disease, unspecified; K21.9 Gastro-esophageal reflux disease without esophagitis; G89.29 Other chronic pain; F12.90 Cannabis use, unspecified, uncomplicated; Z86.73 Personal history of transient ischemic attack (TIA), and cerebral infarction without residual deficits; Z87.442 Personal history of urinary calculi; Z87.440 Personal history of urinary (tract) infections; Z98.51 Tubal ligation status; Z79.01 Long term (current) use of anticoagulants
CPT/HCPCS: 36415; 71045; 80053; 83735; 84484; 85025; 93005; 96361; 96374; 99285; J1885; J7030

== ENCOUNTER 2021-03-06 13:49 | Emergency (ER) | payer MEDICAID ==
[~2021-03-06] VITALS: Ht 162.6 cm; Wt 69.5 kg
[2021-03-06 14:44] LABS: BASOPHILS # (AUTO) 0.1 X10'3 (0-0.2); EOSINOPHILS # (AUTO) 0.5 X10'3 (0-0.9); EOSINOPHILS % (AUTO) 5.8 % (0-6); HEMATOCRIT 38.2 % (35.0-45.0); HEMOGLOBIN 12.9 g/dl (12.0-16.0); LYMPHOCYTES # (AUTO) 2.3 X10'3 (1.1-4.8); LYMPHOCYTES % (AUTO) 29.3 % (21-51); MEAN CORPUSCULAR HEMOGLOBIN 31.2 PG (27.0-31.0); MEAN CORPUSCULAR HGB CONC 33.9 g/dL (33.0-36.5); MEAN CORPUSCULAR VOLUME 92.2 FL (78-98); MEAN PLATELET VOLUME 9.1 FL (7.4-10.4); MONOCYTES # (AUTO) 0.5 X10'3 (0-0.9); MONOCYTES % (AUTO) 6.3 % (2-12); NEUTROPHILS # (AUTO) 4.5 X10'3 (1.8-7.7); NEUTROPHILS % (AUTO) 57.6 % (42-75); PLATELET COUNT 242 X10'3 (140-440); RED BLOOD COUNT 4.14 X10'6 (4.20-5.60); RED CELL DISTRIBUTION WIDTH 12.7 % (11.5-14.5); WHITE BLOOD COUNT 7.8 X10'3 (4.5-11.0)
[2021-03-06 14:50] LABS: ALANINE AMINOTRANSFERASE 16 U/L (12-78); ALBUMIN/GLOBULIN RATIO 1.1 (1.1-1.5); ALKALINE PHOSPHATASE 113 IU/L (46-116); ANION GAP 4 (8-16); ASPARTATE AMINO TRANSFERASE 10 U/L (10-37); BILIRUBIN,TOTAL 0.4 MG/DL (0.1-1.0); BLOOD UREA NITROGEN 16 MG/DL (7-18); BUN/CREATININE RATIO 12.2 (6.6-38.0); CALCIUM 8.7 MG/DL (8.5-10.1); CHLORIDE 106 MMOL/L (99-107); CREATININE 1.31 MG/DL (0.40-0.90); GLUCOSE 85 MG/DL (70-104); POTASSIUM 4.3 MMOL/L (3.5-5.1); SODIUM 142 MMOL/L (135-145); TOTAL CARBON DIOXIDE 32.2 MMOL/L (24-32); TOTAL PROTEIN 7.6 G/DL (6.4-8.2); eGFR 42 ML/MIN
[2021-03-06] MEDS ORDERED: normal saline 1000ML IV soln IVB ONE (17:20)
[2021-03-06 18:24] VITALS: BP 107/63
[2021-03-06 18:29] LABS: CLARITY,URINE SLIGHTLY CLOUDY (Clear); COLOR,URINE YELLOW (Yellow); GLUCOSE, URINE NEGATIVE (Neg); KETONES,URINE NEGATIVE (Neg); LEUKOCYTE ESTERASE ,URINE SMALL (Neg); NITRITES, URINE POSITIVE (Neg); OCCULT BLOOD,URINE LARGE (Neg); PH,URINE 5.5 (4.8-8.0); PROTEIN,URINE NEGATIVE (Neg); UROBILINOGEN,URINE 0.2 E.U/dL (0.2-1.0)
[2021-03-06 18:36] LABS: UA COLLECTION TYPE CLN CATCH MIDSTREAM; WBC,URINE TNTC /HPF (0-4)
[2021-03-06 18:37] LABS: BACTERIA,URINE 4+ /HPF (Neg); MUCUS STRANDS MODERATE /LPF (Neg); SQUAMOUS EPITHELIAL CELL,UR MODERATE /LPF (FEW); WBC CLUMPS,URINE MODERATE /HPF (NEGATIVE)
--- NOTE | 2021-03-11 13:22 | NUR ---
PT CALLED AND NOTIFIED THAT HER LAB WORK FROM 03/06 SHOWED SHE HAD A UTI AND ABX WERE NEEDED. PT INFORMED THAT BACTRIM DS, 1 TABLET PO BID x7 DAYS WILL BE ORDERED. ATTEMPTED TO CALL [facility] IN [place], PHARMISIST IS AT [place] AND WILL CALL BACK THEM BACK Addendum: 03/11/21 at 1406 by SHAI [facility] CALLED INTO [facility] IN [place] AT PT'S REQUEST. BACTRIM DS, 1 TAB PO BID x7 DAYS, #14
== END 2021-03-06 18:26 | disposition home or self-care (01) ==
LOC: ER 13:49
DX: R00.1 Bradycardia, unspecified (principal); R55 Syncope and collapse; E86.0 Dehydration; I48.91 Unspecified atrial fibrillation; I10 Essential (primary) hypertension; K21.9 Gastro-esophageal reflux disease without esophagitis; J44.9 Chronic obstructive pulmonary disease, unspecified; G89.29 Other chronic pain; F32.9 Major depressive disorder, single episode, unspecified; F20.9 Schizophrenia, unspecified; F12.90 Cannabis use, unspecified, uncomplicated; Z86.73 Personal history of transient ischemic attack (TIA), and cerebral infarction without residual deficits; Z87.442 Personal history of urinary calculi; Z87.440 Personal history of urinary (tract) infections; Z98.51 Tubal ligation status; Z98.890 Other specified postprocedural states; Z88.1 Allergy status to other antibiotic agents; Z79.899 Other long term (current) drug therapy
CPT/HCPCS: 36415; 71045; 80053; 81001; 83880; 84484; 85025; 87077; 87088; 87186; 93005; 99285

== ENCOUNTER 2021-06-05 12:05 | Day surgery (SDC) | payer MEDICAID ==
[2021-05-28 15:33] LABS: BASOPHILS # (AUTO) 0.1 X10'3 (0-0.2); BASOPHILS % (AUTO) 0.9 % (0-1); EOSINOPHILS # (AUTO) 0.5 X10'3 (0-0.9); EOSINOPHILS % (AUTO) 6.5 % (0-6); LYMPHOCYTES # (AUTO) 2.6 X10'3 (1.1-4.8); MEAN CORPUSCULAR HEMOGLOBIN 30.8 PG (27.0-31.0); MEAN CORPUSCULAR HGB CONC 33.4 g/dL (33.0-36.5); MEAN PLATELET VOLUME 9.4 FL (7.4-10.4); MONOCYTES # (AUTO) 0.6 X10'3 (0-0.9); MONOCYTES % (AUTO) 7.8 % (2-12); NEUTROPHILS # (AUTO) 4.2 X10'3 (1.8-7.7); NEUTROPHILS % (AUTO) 52.8 % (42-75); PRE OP HEMATOCRIT 37.2 % (35.0-45.0); PRE OP HEMOGLOBIN 12.4 g/dL (12.0-16.0); PRE OP PLATELET COUNT 209 X10'3 (140-440); RED BLOOD COUNT 4.05 X10'6 (4.20-5.60); RED CELL DISTRIBUTION WIDTH 13.1 % (11.5-14.5)
[2021-05-28 15:43] LABS: PRE OP PROTIME 10.6 SECONDS (9.0-12.0)
[2021-05-28 15:44] LABS: ALBUMIN 3.7 G/DL (3.4-5.0); ALBUMIN/GLOBULIN RATIO 1.1 (1.1-1.5); ALKALINE PHOSPHATASE 114 IU/L (46-116); BLOOD UREA NITROGEN 21 MG/DL (7-18); BUN/CREATININE RATIO 17.4 (6.6-38.0); CALCIUM 8.4 MG/DL (8.5-10.1); CHLORIDE 108 MMOL/L (99-107); CREATININE 1.21 MG/DL (0.40-0.90); PRE OP ALT 23 U/L (30-65); PRE OP ANION GAP 9 (8-16); PRE OP AST 20 U/L (10-37); PRE OP BILIRUB, TOTAL 0.3 MG/DL (0.0-1.0); PRE OP GLUCOSE 86 MG/DL (70-104); PRE OP SODIUM 145 MMOL/L (135-145); TOTAL CARBON DIOXIDE 28.3 MMOL/L (24-32); eGFR 46 ML/MIN
[~2021-06-05] VITALS: Ht 162.6 cm; Wt 70.9 kg
[2021-06-05] VITALS (10 sets, daily range): BP systolic 120–161; BP diastolic 52–71
[~2021-06-05 12:05] MED LIST changes: +ALBU8.5H17 INH; -ALBU8.5H8 INH; +DOCUMENT DATE & TIME OF BETA-BLOCKER PO ONE; +METO-384 PO; -PROP10TA10 PO; +ROPI1TAB6 PO; +clindamycin-Cleocin 900mg/D5W 50 ML IV ONE; +famotidine 20mg tablet PO ONE; +ringers solution, lacted 1,000 ML IV SCH; +vancomycin 1,500 MG in NS 300ml IV soln IV ONE
[2021-06-05] MEDS ORDERED: BUPIVAcaine/PF 7.5mg/ml (0.75%) 10ml vial ONE (14:32)
[2021-06-05] MEDS ORDERED: triamcinolone acetonide 40mg/ml inj ONE (14:32)
[2021-06-05] MEDS ORDERED: dexamethasone sod phosphate 10mg/ml inj ONE (14:36)
[2021-06-05] MEDS ORDERED: ondansetron/PF 4mg/2ml inj ONE (14:36)
[2021-06-05] MEDS ORDERED: sevoflurane 250ml liquid IH ONE (14:36)
[2021-06-05] MEDS ORDERED: fentaNYL/PF 50MCG/1 ML 2ML syringe ONE (14:40)
[2021-06-05] MEDS ORDERED: midazolam 1 mg/ML 2ml injection ONE (14:41)
[2021-06-05] MEDS ORDERED: propofol inj 20 ML IV ONE ×2 (15:06→15:11)
[2021-06-05] MEDS ORDERED: ePHEDrine 50MG/ML INJ. ONE ×2 (15:07→15:11)
[2021-06-05] MEDS ORDERED: 0.9 % SODIUM CHLORIDE 10 ML VIAL ONE (15:11)
[2021-06-05] MEDS ORDERED: LIDOcaine 2% (20mg/ml) 5ml vial ONE (15:11)
[2021-06-05] MEDS ORDERED: labetalol 20mg/4ml (5mg/ml) syringe IV PRN (15:20)
[2021-06-05] MEDS ORDERED: hydrALAZINE 20mg/ml inj. IV PRN (15:20)
[2021-06-05] MEDS ORDERED: morphine 4 MG/ML inj SYRINge IV PRN (15:20)
[2021-06-05] MEDS ORDERED: meperidine/PF 25mg/ml syringe IV PRN (15:20)
[2021-06-05] MEDS ORDERED: ondansetron/PF 4mg/2ml inj IV PRN (15:20)
[2021-06-05] MEDS ORDERED: morphine 2 MG/ML inj. syringe IV PRN (15:20)
[2021-06-05] MEDS ORDERED: HYDROmorphone/PF 0.2 MG/ML SYRINGE IV PRN ×2 (15:20)
[2021-06-05] MEDS ORDERED: ringers solution, lacted 1,000 ML IV SCH (15:20)
[2021-06-05] MEDS ORDERED: acetaminophen 1,000mg/100ml IV 100 ML IV PRN (15:20)
[2021-06-05] MEDS ORDERED: proCHLORperazine 10 MG/2 ml inj IV PRN (15:20)
== END 2021-06-05 17:00 | disposition home or self-care (01) ==
LOC: PRE-OP 12:05
PROVIDERS: ATTEND Orthopaedic Surgery
DX: S83.232A Complex tear of medial meniscus, current injury, left knee, initial encounter (principal); S83.272A Complex tear of lateral meniscus, current injury, left knee, initial encounter; M94.262 Chondromalacia, left knee; M17.0 Bilateral primary osteoarthritis of knee; F41.9 Anxiety disorder, unspecified; G89.4 Chronic pain syndrome; K21.9 Gastro-esophageal reflux disease without esophagitis; G40.909 Epilepsy, unspecified, not intractable, without status epilepticus; G47.33 Obstructive sleep apnea (adult) (pediatric); M19.011 Primary osteoarthritis, right shoulder; I48.91 Unspecified atrial fibrillation; I10 Essential (primary) hypertension; I25.2 Old myocardial infarction; I69.351 Hemiplegia and hemiparesis following cerebral infarction affecting right dominant side; G43.909 Migraine, unspecified, not intractable, without status migrainosus; F31.9 Bipolar disorder, unspecified; F43.10 Post-traumatic stress disorder, unspecified; E66.8 Other obesity; Z68.26 Body mass index [BMI] 26.0-26.9, adult; Z87.442 Personal history of urinary calculi; Z79.01 Long term (current) use of anticoagulants; Z79.899 Other long term (current) drug therapy; Z88.1 Allergy status to other antibiotic agents; Z98.890 Other specified postprocedural states; Z98.1 Arthrodesis status; Z20.822 Contact with and (suspected) exposure to COVID-19; Z87.891 Personal history of nicotine dependence; Z82.49 Family history of ischemic heart disease and other diseases of the circulatory system; Z83.6 Family history of other diseases of the respiratory system; X58.XXXA Exposure to other specified factors, initial encounter; Y93.89 Activity, other specified; Y92.89 Other specified places as the place of occurrence of the external cause; Y99.8 Other external cause status
CPT/HCPCS: 29873; 29879; 29880; 36415; 80053; 82948; 85025; 85610; 85730; J1100; J2001; J2250; J2405; J2704; J3010; J3301; J3370; J3490; J7040; U0003; U0005; Z7506; Z7508; Z7512; A4215; A4618; A6250; A6449; A7000; J7120

== ENCOUNTER 2021-09-10 18:00 | Inpatient (IN) | payer MEDICAID ==
[~2021-09-10] VITALS: Ht 162.6 cm; Wt 72.0 kg
[~2021-09-10 18:00] MED LIST changes: -DOCUMENT DATE & TIME OF BETA-BLOCKER PO ONE; -clindamycin-Cleocin 900mg/D5W 50 ML IV ONE; -famotidine 20mg tablet PO ONE; -ringers solution, lacted 1,000 ML IV SCH; -vancomycin 1,500 MG in NS 300ml IV soln IV ONE
[2021-09-10] MEDS ORDERED: aspirin 81mg tab.chew PO ONE (18:10)
[2021-09-10] MEDS ORDERED: ondansetron/PF 4mg/2ml inj IV ONE (18:35)
[2021-09-10] MEDS ORDERED: morphine 4 MG/ML inj SYRINge IV ONE (18:35)
[2021-09-10 18:36] LABS: BASOPHILS # (AUTO) 0.1 X10'3 (0-0.2); EOSINOPHILS # (AUTO) 0.3 X10'3 (0-0.9); LYMPHOCYTES # (AUTO) 1.6 X10'3 (1.1-4.8); MEAN PLATELET VOLUME 7.6 FL (7.4-10.4); MONOCYTES # (AUTO) 0.8 X10'3 (0-0.9); RED BLOOD COUNT 3.62 X10'6 (4.20-5.60)
[2021-09-10 18:38] LABS: BASOPHILS % (AUTO) 0.5 % (0-1); EOSINOPHILS % (AUTO) 2.8 % (0-6); HEMATOCRIT 33.1 % (35.0-45.0); HEMOGLOBIN 11.3 g/dl (12.0-16.0); LYMPHOCYTES % (AUTO) 15.8 % (21-51); MEAN CORPUSCULAR HEMOGLOBIN 31.4 PG (27.0-31.0); MEAN CORPUSCULAR HGB CONC 34.3 g/dL (33.0-36.5); MEAN CORPUSCULAR VOLUME 91.5 FL (78-98); MONOCYTES % (AUTO) 7.9 % (2-12); NEUTROPHILS # (AUTO) 7.5 X10'3 (1.8-7.7); PLATELET COUNT 598 X10'3 (140-440); RED CELL DISTRIBUTION WIDTH 12.7 % (11.5-14.5); WHITE BLOOD COUNT 10.3 X10'3 (4.5-11.0)
[2021-09-10 18:53] LABS: ALANINE AMINOTRANSFERASE 15 U/L (12-78); ALBUMIN/GLOBULIN RATIO 0.6 (1.1-1.5); ALKALINE PHOSPHATASE 165 IU/L (46-116); ANION GAP 11 (8-16); ASPARTATE AMINO TRANSFERASE 15 U/L (10-37); BILIRUBIN,TOTAL 0.5 MG/DL (0.1-1.0); BLOOD UREA NITROGEN 13 MG/DL (7-18); BUN/CREATININE RATIO 8.2 (6.6-38.0); CALCIUM 8.7 MG/DL (8.5-10.1); CHLORIDE 100 MMOL/L (99-107); CREATININE 1.59 MG/DL (0.40-0.90); GLUCOSE 152 MG/DL (70-104); POTASSIUM 3.6 MMOL/L (3.5-5.1); SODIUM 137 MMOL/L (135-145); TOTAL CARBON DIOXIDE 26.5 MMOL/L (24-32); TOTAL PROTEIN 7.8 G/DL (6.4-8.2); eGFR 33 ML/MIN
[2021-09-10 19:02] LABS: LIPASE < 50 U/L (73-393); MAGNESIUM 2.2 MG/DL (1.5-2.4)
[2021-09-10] MEDS ORDERED: temazepam 15mg capsule PO PRN (21:00)
[2021-09-10] MEDS ORDERED: ringers solution, lacted 1,000 ML IV ONE (21:20)
[2021-09-10] MEDS ORDERED: HYDROcodone/acetaminophen 5mg/325mg tablet PO PRN (21:25)
[2021-09-10] MEDS ORDERED: bisacodyl 10mg suppository rectal RC PRN (21:25)
[2021-09-10] MEDS ORDERED: diphenhydrAMINE 25mg capsule PO PRN (21:25)
[2021-09-10] MEDS ORDERED: mag hydrox/Alum hydrox/simeth 30ml oral suspension PO PRN (21:25)
[2021-09-10] MEDS ORDERED: diphenhydrAMINE 50 mg/ml inj IV PRN (21:25)
[2021-09-10] MEDS ORDERED: acetaminophen 650mg rectal suppository RC PRN (21:25)
[2021-09-10] MEDS: potassium Cl 20mEq in NS 1,000 ML IV SCH (21:25)
[2021-09-10] MEDS ORDERED: ondansetron 4mg rapidly disintigrating tab PO PRN (21:25)
[2021-09-10] MEDS ORDERED: morphine 2 MG/ML inj. syringe IV PRN (21:25)
[2021-09-10] MEDS ORDERED: acetaminophen 325mg tablet PO PRN ×2 (21:25)
[2021-09-10] MEDS ORDERED: magnesium hydroxide 30ml (MOM) UD suspension PO PRN (21:25)
[2021-09-10] MEDS ORDERED: ondansetron/PF 4mg/2ml inj IV PRN (21:25)
[2021-09-10] MEDS ORDERED: HYDROcodone/acetaminophen 10/325mg tab PO PRN (21:25)
[2021-09-10] MEDS ORDERED: regadenoson 0.4mg/5ml syringe IV PRN (21:30)
[2021-09-10] MEDS ORDERED: nitroGLYCERIN 0.4mg SUBLingual tab SL PRN (21:30)
[2021-09-10] MEDS ORDERED: aminophylline 250mg/10ml inj. IV PRN (21:30)
[2021-09-10] MEDS ORDERED: metoprolol tartrate 1mg/ml inj IV PRN (21:30)
[2021-09-10] MEDS ORDERED: ALBUTEROL INHALER 1 PUFF/90 MCG INHALER IH PRN (21:35)
[2021-09-10] MEDS ORDERED: non-formulary drug (Methocarbamol 2 TAB) PO PRN (21:35)
[2021-09-10] MEDS ORDERED: METO-395 PO ×2 (21:38→21:42)
[2021-09-10] MEDS ORDERED: PANT40TA54 PO (21:41)
[2021-09-10] MEDS ORDERED: GABA600T13 PO (21:41)
[2021-09-10 21:47] LABS: APTT 29 SECONDS (22-32); D-DIMER 1.96 MG/L FEU (0-0.50)
[2021-09-10 21:56] LABS: CLARITY,URINE CLOUDY (Clear); COLOR,URINE YELLOW (Yellow); GLUCOSE, URINE NEGATIVE (Neg); KETONES,URINE NEGATIVE (Neg); LEUKOCYTE ESTERASE ,URINE LARGE (Neg); NITRITES, URINE POSITIVE (Neg); OCCULT BLOOD,URINE LARGE (Neg); PROTEIN,URINE 30 mg/dl (Neg); UROBILINOGEN,URINE 0.2 E.U/dL (0.2-1.0)
[2021-09-10 21:57] LABS: CREATINE KINASE 46 U/L (26-192); HEMOGLOBIN A1C 4.9 % (4.5-6.2); PHOSPHORUS 3.8 MG/DL (2.3-4.5)
[2021-09-10 22:01] LABS: UA COLLECTION TYPE CLN CATCH MIDSTREAM
[2021-09-10 22:03] LABS: WBC,URINE TNTC /HPF (0-4)
[2021-09-10 22:04] LABS: BACTERIA,URINE 3+ /HPF (Neg); MUCUS STRANDS FEW /LPF (Neg); SQUAMOUS EPITHELIAL CELL,UR FEW /LPF (FEW)
[2021-09-10 22:05] LABS: TRANSITIONAL EPI CELLS,URINE FEW /HPF
[2021-09-10 22:16] LABS: URINE AMPHETAMINE SCREEN NEGATIVE (Neg); URINE BARBITUATE SCREEN NEGATIVE (Neg); URINE BENZODIAZEPINES SCREEN NEGATIVE (Neg); URINE CANNABINOID SCREEN POSITIVE (Neg); URINE COCAINE SCREEN NEGATIVE (Neg); URINE METHADONE SCREEN NEGATIVE (Neg); URINE OPIATE SCREEN POSITIVE (Neg); URINE PHENCYCLIDINE SCREEN NEGATIVE (Neg)
[2021-09-11] VITALS (15 sets, daily range): BP systolic 84–110; BP diastolic 38–63
--- NOTE | 2021-09-11 00:55 | NUR ---
report to jc unit RN
--- NOTE | 2021-09-11 01:09 | NUR ---
Received report from RN in ER. recieved pt from er via daniel savage to room. Oriented to room and routine, vss no c/o c/p. vss. Addendum: 09/11/21 at 0210 by India Garces RN Amended: Links added.
[2021-09-11] MEDS: morphine 2 MG/ML inj. syringe IV PRN ×4 (01:57→22:06)
[2021-09-11 06:40] LABS: BASOPHILS # (AUTO) 0.1 X10'3 (0-0.2); BASOPHILS % (AUTO) 0.6 % (0-1); EOSINOPHILS # (AUTO) 0.2 X10'3 (0-0.9); EOSINOPHILS % (AUTO) 2.8 % (0-6); HEMATOCRIT 28.2 % (35.0-45.0); HEMOGLOBIN 9.8 g/dl (12.0-16.0); LYMPHOCYTES # (AUTO) 1.8 X10'3 (1.1-4.8); LYMPHOCYTES % (AUTO) 22.4 % (21-51); MEAN CORPUSCULAR HEMOGLOBIN 31.5 PG (27.0-31.0); MEAN CORPUSCULAR HGB CONC 34.7 g/dL (33.0-36.5); MEAN CORPUSCULAR VOLUME 90.7 FL (78-98); MEAN PLATELET VOLUME 7.7 FL (7.4-10.4); MONOCYTES # (AUTO) 0.8 X10'3 (0-0.9); MONOCYTES % (AUTO) 10.1 % (2-12); NEUTROPHILS # (AUTO) 5.2 X10'3 (1.8-7.7); NEUTROPHILS % (AUTO) 64.1 % (42-75); PLATELET COUNT 462 X10'3 (140-440); WHITE BLOOD COUNT 8.2 X10'3 (4.5-11.0)
--- NOTE | 2021-09-11 06:41 | NUR ---
Problems reprioritized. Patient report given, questions answered & plan of care reviewed with MINH Dwyer. Addendum: 09/11/21 at 0641 by India Garces RN Amended: Links added.
[2021-09-11 07:09] LABS: ALANINE AMINOTRANSFERASE 7 U/L (12-78); ALBUMIN 2.5 G/DL (3.4-5.0); ALBUMIN/GLOBULIN RATIO 0.6 (1.1-1.5); ALKALINE PHOSPHATASE 133 IU/L (46-116); ANION GAP 6 (8-16); ASPARTATE AMINO TRANSFERASE 8 U/L (10-37); BILIRUBIN,TOTAL 0.4 MG/DL (0.1-1.0); BLOOD UREA NITROGEN 9 MG/DL (7-18); BUN/CREATININE RATIO 6.7 (6.6-38.0); CALCIUM 8.7 MG/DL (8.5-10.1); CHLORIDE 106 MMOL/L (99-107); CHOL/HDL RATIO 4.2 (0.00-4.99); CHOLESTEROL 140 MG/DL (0-200); CREATININE 1.35 MG/DL (0.40-0.90); GLUCOSE 79 MG/DL (70-104); HDL CHOLESTEROL 33 MG/DL (35-60); LDL CHOLESTEROL 84 MG/DL (50-100); POTASSIUM 4.3 MMOL/L (3.5-5.1); SODIUM 140 MMOL/L (135-145); TOTAL CARBON DIOXIDE 27.9 MMOL/L (24-32); TOTAL PROTEIN 6.6 G/DL (6.4-8.2); TRIGLYCERIDES 73 MG/DL (20-135); eGFR 40 ML/MIN
[2021-09-11] MEDS ORDERED: atorvastatin 20mg tablet PO SCH (08:00)
[2021-09-11] MEDS ORDERED: metoprolol succinate 25mg (24-HOUR) SR. Tablet PO SCH (08:00)
[2021-09-11] MEDS ORDERED: non-formulary drug (Flecainide Acetate 1 TAB) PO SCH (08:00)
[2021-09-11] MEDS ORDERED: apixaban 5mg tablet PO SCH ×2 (08:00→22:10)
[2021-09-11] MEDS ORDERED: non-formulary drug (Metoprolol Succinate 1 TAB) PO SCH (08:00)
[2021-09-11] MEDS ORDERED: pantoprazole 40mg Tablet.DR PO SCH (08:00)
[2021-09-11] MEDS ORDERED: nitroGLYCERIN 0.1mg/hour patch TD SCH (08:00)
[2021-09-11] MEDS ORDERED: PERFLUTREN PROTEIN-A MICROSPHR (Optison) 0.22 MG/ML 3ML VIAL IV ONE (08:25)
[2021-09-11] MEDS: lamoTRIgine 100mg tablet PO SCH ×2 (08:37→22:01)
[2021-09-11] MEDS: docusate sod 100mg capsule PO SCH ×2 (08:37→22:23)
[2021-09-11] MEDS: oxybutynin 5mg tablet PO SCH ×2 (08:37→22:02)
[2021-09-11] MEDS: pantoprazole 40mg Tablet.DR PO SCH (08:38)
[2021-09-11] MEDS: aspirin 81mg, enteric-coated 1 TAB TABLET.DR PO SCH (08:38)
[2021-09-11] MEDS ORDERED: FLU VACC QS2021-22(6MOS UP)/PF 60 MCG/0.5 ML SYRINGE IM ONE (09:00)
[2021-09-11] MEDS: potassium Cl 20mEq in NS 1,000 ML IV SCH ×3 (10:08→23:56)
[2021-09-11] MEDS ORDERED: levoFLOXACIN 500mg tablet PO SCH (11:00)
[2021-09-11 14:05] LABS: ALBUMIN 2.6 G/DL (3.4-5.0); ANION GAP 10 (8-16); BLOOD UREA NITROGEN 10 MG/DL (7-18); BUN/CREATININE RATIO 8.1 (6.6-38.0); CALCIUM 8.4 MG/DL (8.5-10.1); CHLORIDE 102 MMOL/L (99-107); CREATININE 1.23 MG/DL (0.40-0.90); GLUCOSE 87 MG/DL (70-104); SODIUM 139 MMOL/L (135-145); TOTAL CARBON DIOXIDE 27.3 MMOL/L (24-32); eGFR 45 ML/MIN
--- NOTE | 2021-09-11 14:31 | NUR ---
Malnutrition consult: Pt admitted w/ chest pain, HTN, UTI, and acute renal failure per EMR. Pt states she used to weigh 235lb in September of this year and now weighs 135lb. Current non-scaled wt shows 158lb and scaled wt from March 2020 shows 189lb. Pt stated wt of 235lb does not appear to be consistent w/ previous admits. Pt states she has lost that wt d/t not having an appetite. She mentions that she was going to the doctors office to be weighed every week but was not offered an explanation of to why she was losing wt or having decreased appetite. Pt mentions simply drinking water would make her full though she does like to drink Ensures. Mild-Moderate muscle wasting can be appreciated upon palpation of the temporal region but not on other body sites. Ample fat stores were observed and the skin did seem to be a little loose but not to the degree of 100lb reported wt loss. Pt currently NPO for CT though she states her appetite is still not great; obtained food preferences d/w dietary. No edema noted and w/ normal muscle strength. At this time, pt does not meet minimum criteria for malnutrition, will continue to monitor. Addendum: 09/11/21 at [address] Amended: Links added.
[2021-09-11] MEDS ORDERED: albuterol 2.5 MG/3 ML nebule NEB PRN (14:40)
[2021-09-11] MEDS ORDERED: ipratropium/albuterol 3ml nebule NEB PRN (14:40)
[2021-09-11] MEDS ORDERED: iohexol 350MG/ML 100ml bottle IV ONE (17:20)
--- NOTE | 2021-09-11 18:37 | NUR ---
Patient in room MED 310. I have received report from MINH Dwyer and had the opportunity to ask questions and assume patient care. Visitor at bedside
[2021-09-11] MEDS ORDERED: traZODone 50mg tablet PO SCH (21:00)
[2021-09-11] MEDS ORDERED: gabapentin 400mg capsule PO SCH (21:00)
[2021-09-11] MEDS ORDERED: zolpidem 5mg tablet PO SCH (21:00)
[2021-09-11] MEDS: apixaban 5mg tablet PO SCH (22:20)
[2021-09-12 02:00] VITALS: BP 97/50
--- NOTE | 2021-09-12 03:05 | NUR ---
Nitro patch taken off due to low BP. 82/39, will keep monitoring BP . Patient is arousable and all other vitals are within normal limits
[2021-09-12 03:38] VITALS: BP 73/32
[2021-09-12 03:40] VITALS: BP 97/50
[2021-09-12] MEDS ORDERED: albumin (Human) 5% 250ml 250 ML IV ONE (03:45)
[2021-09-12] MEDS: potassium Cl 20mEq in NS 1,000 ML IV SCH ×2 (03:53→10:33)
--- NOTE | 2021-09-12 04:21 | NUR ---
A 250 bolus has been given due to continued low BP. Dr Alejo was called and an order was received for Albuimin5% 250ml x1. PAtient is closely being monitored. Apple juice was given for a blood glucose of 74. Addendum: 09/12/21 at 0613 by Terrence Dacosta RN DC BP medications was also an order given to me by Dr Alejo
[2021-09-12 04:42] VITALS: BP 99/51
[2021-09-12 05:20] LABS: BASOPHILS # (AUTO) 0.1 X10'3 (0-0.2); BASOPHILS % (AUTO) 0.6 % (0-1); EOSINOPHILS # (AUTO) 0.2 X10'3 (0-0.9); EOSINOPHILS % (AUTO) 1.8 % (0-6); HEMATOCRIT 26.4 % (35.0-45.0); HEMOGLOBIN 9.2 g/dl (12.0-16.0); LYMPHOCYTES # (AUTO) 1.4 X10'3 (1.1-4.8); LYMPHOCYTES % (AUTO) 15.6 % (21-51); MEAN CORPUSCULAR HEMOGLOBIN 31.7 PG (27.0-31.0); MEAN CORPUSCULAR HGB CONC 34.7 g/dL (33.0-36.5); MEAN CORPUSCULAR VOLUME 91.2 FL (78-98); MEAN PLATELET VOLUME 7.5 FL (7.4-10.4); MONOCYTES # (AUTO) 0.9 X10'3 (0-0.9); MONOCYTES % (AUTO) 10.4 % (2-12); NEUTROPHILS # (AUTO) 6.4 X10'3 (1.8-7.7); NEUTROPHILS % (AUTO) 71.6 % (42-75); PLATELET COUNT 446 X10'3 (140-440); RED CELL DISTRIBUTION WIDTH 12.7 % (11.5-14.5)
[2021-09-12 05:37] LABS: ALANINE AMINOTRANSFERASE 9 U/L (12-78); ALBUMIN 2.4 G/DL (3.4-5.0); ALBUMIN/GLOBULIN RATIO 0.6 (1.1-1.5); ALKALINE PHOSPHATASE 115 IU/L (46-116); ANION GAP 9 (8-16); ASPARTATE AMINO TRANSFERASE 13 U/L (10-37); BILIRUBIN,TOTAL 0.6 MG/DL (0.1-1.0); BLOOD UREA NITROGEN 6 MG/DL (7-18); CALCIUM 8.3 MG/DL (8.5-10.1); CHLORIDE 105 MMOL/L (99-107); CREATININE 1.19 MG/DL (0.40-0.90); GLUCOSE 83 MG/DL (70-104); POTASSIUM 3.8 MMOL/L (3.5-5.1); SODIUM 139 MMOL/L (135-145); TOTAL CARBON DIOXIDE 24.8 MMOL/L (24-32); TOTAL PROTEIN 6.3 G/DL (6.4-8.2); eGFR 46 ML/MIN
[2021-09-12 06:00] VITALS: BP 98/45
--- NOTE | 2021-09-12 06:21 | NUR ---
Problems reprioritized. Patient report given, questions answered & plan of care reviewed with MINH Greer.
--- NOTE | 2021-09-12 06:51 | NUR ---
Patient in room MED 310. I have received report from Terrence WILKINSON and had the opportunity to ask questions and assume patient care.
[2021-09-12] MEDS: oxybutynin 5mg tablet PO SCH (07:50)
[2021-09-12] MEDS: pantoprazole 40mg Tablet.DR PO SCH (07:50)
[2021-09-12] MEDS: aspirin 81mg, enteric-coated 1 TAB TABLET.DR PO SCH (07:50)
[2021-09-12] MEDS: apixaban 5mg tablet PO SCH (07:50)
[2021-09-12] MEDS: lamoTRIgine 100mg tablet PO SCH (07:50)
[2021-09-12] MEDS: docusate sod 100mg capsule PO SCH (07:51)
[2021-09-12 10:00] VITALS: BP 92/39
[2021-09-12] MEDS ORDERED: ASPI-1071 PO (11:02)
--- NOTE | 2021-09-12 13:40 | NUR ---
Pt DC to home with jose roberto. Pt ids A & O x4 and in no apparent distress. pt verbalizes understanding of all DC order and knows the importance of following up with her PCP. Pt walked with PT and did really well. PT dc'ed her. pt states she feels great without O2 and denied chest pain. pt is ready to DC home. Jose Roberto packed all belongings and helped Pt dressed herself. Then she was wheeled to the front where her boyfriend took her home.
== END 2021-09-12 13:41 | disposition home or self-care (01) | DRG 190 ==
LOC: ER 18:00 → UNDOADMIN 21:29 → ED HOLD 21:29 → MED 3N 09-11 01:09 → ED HOLD 09-11 01:09
PROVIDERS: ADMIT Family Medicine; ATTEND Family Medicine
PROC: 4A02XM4 Measurement of Cardiac Total Activity, External Approach (ICD-10-PCS; principal; 2021-09-11)
PROC: 3E073KZ Introduction of Other Diagnostic Substance into Coronary Artery, Percutaneous Approach (ICD-10-PCS; 2021-09-11)
PROC: B32T1ZZ Computerized Tomography (CT Scan) of Left Pulmonary Artery using Low Osmolar Contrast (ICD-10-PCS; 2021-09-11)
PROC: B3201ZZ Computerized Tomography (CT Scan) of Thoracic Aorta using Low Osmolar Contrast (ICD-10-PCS; 2021-09-11)
PROC: B32S1ZZ Computerized Tomography (CT Scan) of Right Pulmonary Artery using Low Osmolar Contrast (ICD-10-PCS; 2021-09-11)
DX: R07.89 Other chest pain (principal); I21.9 Acute myocardial infarction, unspecified; I50.33 Acute on chronic diastolic (congestive) heart failure; N17.9 Acute kidney failure, unspecified; I42.9 Cardiomyopathy, unspecified; I95.9 Hypotension, unspecified; I13.0 Hypertensive heart and chronic kidney disease with heart failure and stage 1 through stage 4 chronic kidney disease, or unspecified chronic kidney disease; R07.2 Precordial pain; N39.0 Urinary tract infection, site not specified; E78.5 Hyperlipidemia, unspecified; F12.10 Cannabis abuse, uncomplicated; F20.9 Schizophrenia, unspecified; G89.29 Other chronic pain; I48.0 Paroxysmal atrial fibrillation; N18.9 Chronic kidney disease, unspecified; K21.9 Gastro-esophageal reflux disease without esophagitis; J44.9 Chronic obstructive pulmonary disease, unspecified; F31.9 Bipolar disorder, unspecified; I08.3 Combined rheumatic disorders of mitral, aortic and tricuspid valves; Z20.822 Contact with and (suspected) exposure to COVID-19; M54.9 Dorsalgia, unspecified; Z81.8 Family history of other mental and behavioral disorders; Z82.0 Family history of epilepsy and other diseases of the nervous system; Z83.3 Family history of diabetes mellitus; Z82.5 Family history of asthma and other chronic lower respiratory diseases; Z82.49 Family history of ischemic heart disease and other diseases of the circulatory system; Z87.440 Personal history of urinary (tract) infections; Z87.891 Personal history of nicotine dependence; Z87.442 Personal history of urinary calculi; Z86.73 Personal history of transient ischemic attack (TIA), and cerebral infarction without residual deficits; Z79.899 Other long term (current) drug therapy; Z98.51 Tubal ligation status; Z82.3 Family history of stroke; Z79.01 Long term (current) use of anticoagulants; Z88.1 Allergy status to other antibiotic agents; Z91.51 Personal history of suicidal behavior
CPT/HCPCS: 36415; 71046; 71275; 78452; 80048; 80053; 80061; 80305; 81001; 82550; 82948; 83036; 83690; 83735; 83880; 84100; 84484; 85025; 85379; 85610; 85730; 87077; 87081; 87088; 87186; 87635; 93005; 93017; 93306; 94760; 97116; 97161; 97530; 99285; A9500; G0378; J2270; J2405; J2785; J3480; J7120; P9045; Q9967

== ENCOUNTER 2021-09-19 14:05 | Inpatient (IN) | payer MEDICAID ==
[~2021-09-19] VITALS: Ht 154.9 cm; Wt 70.0 kg
[2021-09-19] VITALS: BP 113/53
[~2021-09-19 14:05] MED LIST changes: -ALBU8.5H17 INH; +ASPI-1071 PO; -ATOR20TA66 PO; -FLEC100T35 PO; +GABA600T13 PO; -METH-797 PO; -METO-384 PO; +METO-395 PO; -NITR0.4T51 SL; -OMEP-50 PO; +PANT40TA54 PO; -ROPI1TAB6 PO
[2021-09-19 15:28] LABS: BASOPHILS # (AUTO) 0.1 X10'3 (0-0.2); BASOPHILS % (AUTO) 0.7 % (0-1); EOSINOPHILS # (AUTO) 0.3 X10'3 (0-0.9); EOSINOPHILS % (AUTO) 2.4 % (0-6); HEMATOCRIT 31.8 % (35.0-45.0); HEMOGLOBIN 10.6 g/dl (12.0-16.0); LYMPHOCYTES # (AUTO) 1.6 X10'3 (1.1-4.8); LYMPHOCYTES % (AUTO) 12.7 % (21-51); MEAN CORPUSCULAR HEMOGLOBIN 29.9 PG (27.0-31.0); MEAN CORPUSCULAR HGB CONC 33.3 g/dL (33.0-36.5); MEAN CORPUSCULAR VOLUME 89.7 FL (78-98); MEAN PLATELET VOLUME 7.3 FL (7.4-10.4); MONOCYTES # (AUTO) 1.1 X10'3 (0-0.9); NEUTROPHILS # (AUTO) 9.2 X10'3 (1.8-7.7); NEUTROPHILS % (AUTO) 75.2 % (42-75); PLATELET COUNT 587 X10'3 (140-440); RED BLOOD COUNT 3.54 X10'6 (4.20-5.60); RED CELL DISTRIBUTION WIDTH 13.4 % (11.5-14.5); WHITE BLOOD COUNT 12.3 X10'3 (4.5-11.0)
[2021-09-19 15:47] LABS: ALANINE AMINOTRANSFERASE 19 U/L (12-78); ALBUMIN/GLOBULIN RATIO 0.6 (1.1-1.5); ALKALINE PHOSPHATASE 138 IU/L (46-116); ANION GAP 8 (8-16); ASPARTATE AMINO TRANSFERASE 18 U/L (10-37); BILIRUBIN,TOTAL 0.5 MG/DL (0.1-1.0); BLOOD UREA NITROGEN 13 MG/DL (7-18); BUN/CREATININE RATIO 9.3 (6.6-38.0); CALCIUM 8.9 MG/DL (8.5-10.1); CHLORIDE 100 MMOL/L (99-107); GLUCOSE 99 MG/DL (70-104); POTASSIUM 4.1 MMOL/L (3.5-5.1); SODIUM 135 MMOL/L (135-145); TOTAL CARBON DIOXIDE 26.7 MMOL/L (24-32); eGFR 38 ML/MIN
[2021-09-19] MEDS ORDERED: ASPI-500 PO (16:34)
--- NOTE | 2021-09-19 17:01 | NUR ---
Patient reports bilateral flank pain 7/10.
[2021-09-19 17:04] LABS: CLARITY,URINE CLOUDY (Clear); COLOR,URINE YELLOW (Yellow); GLUCOSE, URINE NEGATIVE (Neg); KETONES,URINE NEGATIVE (Neg); LEUKOCYTE ESTERASE ,URINE MODERATE (Neg); NITRITES, URINE POSITIVE (Neg); OCCULT BLOOD,URINE LARGE (Neg); PROTEIN,URINE 30 mg/dl (Neg); UA COLLECTION TYPE NON-SPECIFIED; UROBILINOGEN,URINE 0.2 E.U/dL (0.2-1.0)
[2021-09-19 17:09] LABS: BACTERIA,URINE 3+ /HPF (Neg); MUCUS STRANDS NONE SEEN /LPF (Neg); RBC,URINE 20-50 /HPF (0-2); RENAL CELLS, URINE FEW /HPF; SQUAMOUS EPITHELIAL CELL,UR FEW /LPF (FEW); WBC,URINE 50-100 /HPF (0-4)
[2021-09-19 17:10] LABS: WBC CLUMPS,URINE MODERATE /HPF (NEGATIVE)
[2021-09-19] MEDS ORDERED: clindamycin 600mg/D5W 50ml 50 ML IV ONE (17:15)
[2021-09-19] MEDS ORDERED: ketorolac trometh. 30mg/ml inj. IV ONE (17:20)
[2021-09-19] MEDS ORDERED: acetaminophen 325mg tablet PO ONE (17:20)
[2021-09-19] MEDS ORDERED: normal saline 1000ml 1,000 ML IV ONE (17:20)
--- NOTE | 2021-09-19 18:25 | NUR ---
IR ATTEMPTED TO SUPERVISOR ORCHARD THE PATIENT FOR CT GUIDED DRAIN PLACEMENT OF THE RIGHT KIDNEY MASS. IT WAS NOTED THE PATIENT TAKES ELIQUIS 5MG BID THEREFORE PROCEDURE CANCELED AT THIS TIME. RECOMMENDED TO HOLD 4 DOSES OF ANTICOAGULATION AND WILL ATTEMPT AGAIN ON THURSDAY 09/21. PLEASE MAKE PATIENT NPO BEFORE PROCEDURE.
[2021-09-19] MEDS ORDERED: temazepam 15mg capsule PO PRN (21:00)
[2021-09-19] MEDS ORDERED: diphenhydrAMINE 25mg capsule PO PRN (22:30)
[2021-09-19] MEDS ORDERED: acetaminophen 650mg rectal suppository RC PRN (22:30)
[2021-09-19] MEDS ORDERED: bisacodyl 10mg suppository rectal RC PRN (22:30)
[2021-09-19] MEDS ORDERED: HYDROmorphone inj. 0.5 MG/0.5 ML DISP.SYRIN IV PRN (22:30)
[2021-09-19] MEDS ORDERED: acetaminophen 325mg tablet PO PRN ×2 (22:30)
[2021-09-19] MEDS ORDERED: ondansetron 4mg rapidly disintigrating tab PO PRN (22:30)
[2021-09-19] MEDS ORDERED: magnesium hydroxide 30ml (MOM) UD suspension PO PRN (22:30)
[2021-09-19] MEDS ORDERED: ondansetron/PF 4mg/2ml inj IV PRN (22:30)
[2021-09-19] MEDS ORDERED: mag hydrox/Alum hydrox/simeth 30ml oral suspension PO PRN (22:30)
[2021-09-19] MEDS ORDERED: diphenhydrAMINE 50 mg/ml inj IV PRN (22:30)
[2021-09-19] MEDS ORDERED: morphine 2 MG/ML inj. syringe IV PRN (22:30)
[2021-09-19 23:07] LABS: MAGNESIUM 2.4 MG/DL (1.5-2.4); PHOSPHORUS 3.1 MG/DL (2.3-4.5)
[2021-09-20] MEDS: normal saline 1000ml 1,000 ML IV SCH ×3 (02:04→16:08)
[2021-09-20] MEDS: HYDROcodone/acetaminophen 5mg/325mg tablet PO PRN (02:12)
[2021-09-20 06:10] LABS: BASOPHILS # (AUTO) 0.1 X10'3 (0-0.2); BASOPHILS % (AUTO) 0.6 % (0-1); EOSINOPHILS # (AUTO) 0.4 X10'3 (0-0.9); EOSINOPHILS % (AUTO) 4.1 % (0-6); HEMOGLOBIN 9.3 g/dl (12.0-16.0); LYMPHOCYTES # (AUTO) 1.1 X10'3 (1.1-4.8); MEAN CORPUSCULAR HEMOGLOBIN 30.8 PG (27.0-31.0); MEAN CORPUSCULAR HGB CONC 34.4 g/dL (33.0-36.5); MEAN CORPUSCULAR VOLUME 89.7 FL (78-98); MEAN PLATELET VOLUME 7.2 FL (7.4-10.4); MONOCYTES % (AUTO) 10.9 % (2-12); NEUTROPHILS # (AUTO) 6.6 X10'3 (1.8-7.7); NEUTROPHILS % (AUTO) 72.4 % (42-75); PLATELET COUNT 412 X10'3 (140-440); RED CELL DISTRIBUTION WIDTH 13.3 % (11.5-14.5); WHITE BLOOD COUNT 9.1 X10'3 (4.5-11.0)
[2021-09-20 06:21] LABS: APTT 29 SECONDS (22-32)
[2021-09-20 06:32] LABS: ALANINE AMINOTRANSFERASE 13 U/L (12-78); ALBUMIN 2.3 G/DL (3.4-5.0); ALBUMIN/GLOBULIN RATIO 0.5 (1.1-1.5); ALKALINE PHOSPHATASE 132 IU/L (46-116); ANION GAP 10 (8-16); ASPARTATE AMINO TRANSFERASE 23 U/L (10-37); BILIRUBIN,TOTAL 0.4 MG/DL (0.1-1.0); BLOOD UREA NITROGEN 17 MG/DL (7-18); BUN/CREATININE RATIO 13.3 (6.6-38.0); CALCIUM 8.5 MG/DL (8.5-10.1); CHLORIDE 107 MMOL/L (99-107); CREATININE 1.28 MG/DL (0.40-0.90); GLUCOSE 95 MG/DL (70-104); SODIUM 142 MMOL/L (135-145); TOTAL CARBON DIOXIDE 25.5 MMOL/L (24-32); TOTAL PROTEIN 6.5 G/DL (6.4-8.2); eGFR 43 ML/MIN
[2021-09-20 08:00] VITALS: BP 93/52
[2021-09-20 09:25] VITALS: BP 110/55
[2021-09-20] MEDS: pantoprazole 40mg Tablet.DR PO SCH (09:30)
[2021-09-20] MEDS: docusate sod 100mg capsule PO SCH ×2 (09:33→20:37)
[2021-09-20] MEDS: oxybutynin 5mg tablet PO SCH ×2 (09:34→20:37)
[2021-09-20] MEDS: metoprolol succinate 25mg (24-HOUR) SR. Tablet PO SCH (09:35)
[2021-09-20] MEDS: lamoTRIgine 100mg tablet PO SCH ×2 (09:36→20:38)
[2021-09-20] MEDS: levoFLOXACIN-Levaquin 500mg/D5 100 ML IV SCH (09:38)
[2021-09-20 11:00] VITALS: BP 115/63
[2021-09-20] MEDS: HYDROcodone/acetaminophen 10/325mg tab PO PRN ×2 (13:53→23:25)
[2021-09-20] MEDS ORDERED: FLEC100T35 PO (14:46)
[2021-09-20 19:00] VITALS: BP 135/68
--- NOTE | 2021-09-20 19:15 | NUR ---
Report given back to traveler Rn, all questions answered. Pt NPO after midnight for drain in AM at 0800. Pt has some pain but otherwise no complaints at this time.
[2021-09-20] MEDS: lactobacillus rhamnosus 10,000 MMU CELLS/CAPSULE PO SCH (20:37)
[2021-09-20] MEDS: flecainide 50mg tablet PO SCH (20:39)
[2021-09-20] MEDS: gabapentin 300mg capsule PO SCH (20:39)
[2021-09-20] MEDS: zolpidem 5mg tablet PO SCH (20:39)
[2021-09-20] MEDS: traZODone 50mg tablet PO SCH (20:39)
[2021-09-20 23:55] VITALS: BP 112/66
[2021-09-21] VITALS (16 sets, daily range): BP systolic 83–111; BP diastolic 35–57
[2021-09-21] MEDS: normal saline 1000ml 1,000 ML IV SCH ×2 (05:19→14:37)
[2021-09-21] MEDS: HYDROcodone/acetaminophen 5mg/325mg tablet PO PRN (05:29)
[2021-09-21] MEDS: metoprolol succinate 25mg (24-HOUR) SR. Tablet PO SCH (06:53)
--- NOTE | 2021-09-21 07:12 | NUR ---
message to dr handley "PAGER ID: [phone] MESSAGE: BP 87/46 hr 70 [id number] Vidal Jones RN [id number]"
--- NOTE | 2021-09-21 07:17 | NUR ---
dr handley called to give TO for 1L NS bolus
[2021-09-21] MEDS ORDERED: normal saline 1000ml 1,000 ML IV ONE ×2 (07:20→11:35)
[2021-09-21 07:36] LABS: BASOPHILS # (AUTO) 0.1 X10'3 (0-0.2); BASOPHILS % (AUTO) 0.8 % (0-1); EOSINOPHILS # (AUTO) 0.3 X10'3 (0-0.9); EOSINOPHILS % (AUTO) 3.8 % (0-6); HEMOGLOBIN 8.5 g/dl (12.0-16.0); LYMPHOCYTES # (AUTO) 1.5 X10'3 (1.1-4.8); LYMPHOCYTES % (AUTO) 19.3 % (21-51); MEAN CORPUSCULAR HEMOGLOBIN 30.5 PG (27.0-31.0); MEAN CORPUSCULAR HGB CONC 34.1 g/dL (33.0-36.5); MEAN CORPUSCULAR VOLUME 89.5 FL (78-98); MEAN PLATELET VOLUME 7.3 FL (7.4-10.4); MONOCYTES # (AUTO) 0.8 X10'3 (0-0.9); MONOCYTES % (AUTO) 9.7 % (2-12); NEUTROPHILS # (AUTO) 5.2 X10'3 (1.8-7.7); NEUTROPHILS % (AUTO) 66.4 % (42-75); PLATELET COUNT 385 X10'3 (140-440); RED CELL DISTRIBUTION WIDTH 13.5 % (11.5-14.5); WHITE BLOOD COUNT 7.8 X10'3 (4.5-11.0)
[2021-09-21] MEDS: levoFLOXACIN-Levaquin 500mg/D5 100 ML IV SCH (07:45)
[2021-09-21 08:03] LABS: ALANINE AMINOTRANSFERASE 15 U/L (12-78); ALBUMIN 2.1 G/DL (3.4-5.0); ALBUMIN/GLOBULIN RATIO 0.5 (1.1-1.5); ALKALINE PHOSPHATASE 127 IU/L (46-116); ANION GAP 10 (8-16); ASPARTATE AMINO TRANSFERASE 14 U/L (10-37); BILIRUBIN,TOTAL 0.4 MG/DL (0.1-1.0); BLOOD UREA NITROGEN 8 MG/DL (7-18); BUN/CREATININE RATIO 7.3 (6.6-38.0); CALCIUM 8.2 MG/DL (8.5-10.1); CHLORIDE 108 MMOL/L (99-107); CREATININE 1.09 MG/DL (0.40-0.90); GLUCOSE 80 MG/DL (70-104); POTASSIUM 3.6 MMOL/L (3.5-5.1); SODIUM 142 MMOL/L (135-145); TOTAL CARBON DIOXIDE 24.4 MMOL/L (24-32); TOTAL PROTEIN 6.4 G/DL (6.4-8.2); eGFR 51 ML/MIN
[2021-09-21] MEDS ORDERED: midazolam 1 mg/ML 2ml injection ONE (08:37)
[2021-09-21] MEDS: flecainide 50mg tablet PO SCH ×2 (09:48→22:09)
[2021-09-21] MEDS: oxybutynin 5mg tablet PO SCH ×2 (09:48→21:50)
[2021-09-21] MEDS: lamoTRIgine 100mg tablet PO SCH ×2 (09:48→21:52)
[2021-09-21] MEDS: docusate sod 100mg capsule PO SCH ×2 (09:49→21:49)
[2021-09-21] MEDS: lactobacillus rhamnosus 10,000 MMU CELLS/CAPSULE PO SCH ×2 (09:49→21:50)
[2021-09-21] MEDS: pantoprazole 40mg Tablet.DR PO SCH (09:49)
[2021-09-21] MEDS: HYDROcodone/acetaminophen 10/325mg tab PO PRN ×2 (09:49→17:19)
--- NOTE | 2021-09-21 11:03 | NUR ---
dr handley made aware of BP 83/41 HR 69. no new orders obtained at this time
--- NOTE | 2021-09-21 11:28 | NUR ---
VO from dr handley for 1L NS bolus
[2021-09-21] MEDS: morphine 2 MG/ML inj. syringe IV PRN (12:12)
[2021-09-21 12:44] LABS: % IRON SATURATION 11 % (11-46); IRON 17 UG/DL (49-151); TOTAL IRON BINDING CAPACITY 148 UG/DL (259-388)
--- NOTE | 2021-09-21 13:04 | NUR ---
message to Dr Sullivan "PAGER ID: [phone] MESSAGE: urine positive for MDRO [id number] Laurence Johnson rn [phone]"
[2021-09-21] MEDS ORDERED: meropenem inj 2 GM in normal saline 100ml IV soln 100 ML IV SCH (18:30)
--- NOTE | 2021-09-21 18:46 | NUR ---
Report received from Elizabeth over patient 352 , observed in bed denied any discomfort at this time.
[2021-09-21] MEDS: gabapentin 300mg capsule PO SCH (21:50)
[2021-09-21] MEDS: traZODone 50mg tablet PO SCH (21:51)
[2021-09-21] MEDS: zolpidem 5mg tablet PO SCH (21:52)
[2021-09-22] VITALS: BP 101/51
[2021-09-22] MEDS: normal saline 1000ml 1,000 ML IV SCH ×3 (01:23→19:57)
[2021-09-22] MEDS: morphine 2 MG/ML inj. syringe IV PRN (03:07)
[2021-09-22 05:51] LABS: BASOPHILS % (AUTO) 0.3 % (0-1); EOSINOPHILS # (AUTO) 0.3 X10'3 (0-0.9); EOSINOPHILS % (AUTO) 4.1 % (0-6); HEMATOCRIT 25.1 % (35.0-45.0); HEMOGLOBIN 8.6 g/dl (12.0-16.0); LYMPHOCYTES # (AUTO) 1.3 X10'3 (1.1-4.8); LYMPHOCYTES % (AUTO) 16.6 % (21-51); MEAN CORPUSCULAR HEMOGLOBIN 30.6 PG (27.0-31.0); MEAN CORPUSCULAR HGB CONC 34.4 g/dL (33.0-36.5); MEAN CORPUSCULAR VOLUME 88.9 FL (78-98); MEAN PLATELET VOLUME 6.9 FL (7.4-10.4); MONOCYTES # (AUTO) 0.6 X10'3 (0-0.9); MONOCYTES % (AUTO) 7.8 % (2-12); NEUTROPHILS # (AUTO) 5.5 X10'3 (1.8-7.7); NEUTROPHILS % (AUTO) 71.2 % (42-75); PLATELET COUNT 362 X10'3 (140-440); RED BLOOD COUNT 2.83 X10'6 (4.20-5.60); RED CELL DISTRIBUTION WIDTH 13.4 % (11.5-14.5); WHITE BLOOD COUNT 7.7 X10'3 (4.5-11.0)
[2021-09-22 06:21] LABS: ALANINE AMINOTRANSFERASE 11 U/L (12-78); ALBUMIN 1.9 G/DL (3.4-5.0); ALBUMIN/GLOBULIN RATIO 0.5 (1.1-1.5); ALKALINE PHOSPHATASE 131 IU/L (46-116); ANION GAP 8 (8-16); ASPARTATE AMINO TRANSFERASE 16 U/L (10-37); BILIRUBIN,TOTAL 0.3 MG/DL (0.1-1.0); BLOOD UREA NITROGEN 6 MG/DL (7-18); BUN/CREATININE RATIO 6.2 (6.6-38.0); CALCIUM 8.5 MG/DL (8.5-10.1); CHLORIDE 109 MMOL/L (99-107); CREATININE 0.97 MG/DL (0.40-0.90); GLUCOSE 78 MG/DL (70-104); POTASSIUM 3.6 MMOL/L (3.5-5.1); SODIUM 142 MMOL/L (135-145); TOTAL CARBON DIOXIDE 25.2 MMOL/L (24-32); TOTAL PROTEIN 6.1 G/DL (6.4-8.2); eGFR 59 ML/MIN
--- NOTE | 2021-09-22 06:41 | NUR ---
Report giving to Elizabeth no distress noted.
[2021-09-22 07:15] VITALS: BP 98/55
[2021-09-22] MEDS: iron sucrose complex injection 200 MG in normal saline 100ml IV soln 100 ML IV SCH (08:01)
[2021-09-22] MEDS: docusate sod 100mg capsule PO SCH ×2 (08:24→19:47)
[2021-09-22] MEDS: pantoprazole 40mg Tablet.DR PO SCH (08:25)
[2021-09-22] MEDS: oxybutynin 5mg tablet PO SCH ×2 (08:25→19:47)
[2021-09-22] MEDS: lamoTRIgine 100mg tablet PO SCH ×2 (08:25→19:47)
[2021-09-22] MEDS: lactobacillus rhamnosus 10,000 MMU CELLS/CAPSULE PO SCH ×2 (08:25→19:47)
[2021-09-22] MEDS: flecainide 50mg tablet PO SCH ×2 (10:42→19:48)
[2021-09-22] MEDS: metoprolol succinate 25mg (24-HOUR) SR. Tablet PO SCH (10:42)
[2021-09-22 11:54] VITALS: BP 105/56
[2021-09-22] MEDS: HYDROcodone/acetaminophen 10/325mg tab PO PRN (16:42)
[2021-09-22] MEDS: meropenem inj 1 GM in normal saline 100ml IV soln 100 ML IV SCH ×2 (16:42→23:19)
--- NOTE | 2021-09-22 18:21 | NUR ---
Problems reprioritized. Patient report given, questions answered & plan of care reviewed with MINH Davis.
[2021-09-22 20:00] VITALS: BP 102/58
[2021-09-22] MEDS: zolpidem 5mg tablet PO SCH (22:02)
[2021-09-22] MEDS: traZODone 50mg tablet PO SCH (22:03)
[2021-09-22] MEDS: gabapentin 300mg capsule PO SCH (22:03)
[2021-09-23] VITALS: BP 108/51
[2021-09-23] MEDS: HYDROcodone/acetaminophen 10/325mg tab PO PRN ×3 (00:38→22:34)
[2021-09-23] MEDS: normal saline 1000ml 1,000 ML IV SCH ×2 (05:45→16:59)
[2021-09-23 06:36] LABS: BASOPHILS % (AUTO) 0.7 % (0-1); EOSINOPHILS # (AUTO) 0.4 X10'3 (0-0.9); EOSINOPHILS % (AUTO) 5.9 % (0-6); HEMATOCRIT 26.3 % (35.0-45.0); LYMPHOCYTES # (AUTO) 1.6 X10'3 (1.1-4.8); LYMPHOCYTES % (AUTO) 24.3 % (21-51); MEAN CORPUSCULAR HEMOGLOBIN 30.1 PG (27.0-31.0); MEAN CORPUSCULAR VOLUME 88.3 FL (78-98); MEAN PLATELET VOLUME 6.8 FL (7.4-10.4); MONOCYTES # (AUTO) 0.5 X10'3 (0-0.9); MONOCYTES % (AUTO) 7.9 % (2-12); NEUTROPHILS # (AUTO) 3.9 X10'3 (1.8-7.7); NEUTROPHILS % (AUTO) 61.2 % (42-75); PLATELET COUNT 392 X10'3 (140-440); RED BLOOD COUNT 2.98 X10'6 (4.20-5.60); RED CELL DISTRIBUTION WIDTH 13.4 % (11.5-14.5); WHITE BLOOD COUNT 6.4 X10'3 (4.5-11.0)
[2021-09-23 06:55] LABS: ALANINE AMINOTRANSFERASE 13 U/L (12-78); ALBUMIN 1.9 G/DL (3.4-5.0); ALBUMIN/GLOBULIN RATIO 0.5 (1.1-1.5); ALKALINE PHOSPHATASE 117 IU/L (46-116); ANION GAP 8 (8-16); ASPARTATE AMINO TRANSFERASE 13 U/L (10-37); BILIRUBIN,TOTAL 0.2 MG/DL (0.1-1.0); BLOOD UREA NITROGEN 7 MG/DL (7-18); BUN/CREATININE RATIO 7.4 (6.6-38.0); CALCIUM 7.9 MG/DL (8.5-10.1); CHLORIDE 112 MMOL/L (99-107); CREATININE 0.95 MG/DL (0.40-0.90); GLUCOSE 72 MG/DL (70-104); POTASSIUM 3.2 MMOL/L (3.5-5.1); SODIUM 146 MMOL/L (135-145); TOTAL CARBON DIOXIDE 25.9 MMOL/L (24-32); TOTAL PROTEIN 5.9 G/DL (6.4-8.2); eGFR 60 ML/MIN
[2021-09-23 08:00] VITALS: BP 105/54
[2021-09-23] MEDS: flecainide 50mg tablet PO SCH ×2 (09:04→20:28)
[2021-09-23] MEDS: lamoTRIgine 100mg tablet PO SCH ×2 (09:04→20:28)
[2021-09-23] MEDS: oxybutynin 5mg tablet PO SCH ×2 (09:05→20:29)
[2021-09-23] MEDS: iron sucrose complex injection 200 MG in normal saline 100ml IV soln 100 ML IV SCH (09:05)
[2021-09-23] MEDS: lactobacillus rhamnosus 10,000 MMU CELLS/CAPSULE PO SCH ×2 (09:05→20:28)
[2021-09-23] MEDS: docusate sod 100mg capsule PO SCH ×2 (09:05→20:29)
[2021-09-23] MEDS: pantoprazole 40mg Tablet.DR PO SCH (09:05)
[2021-09-23] MEDS: metoprolol succinate 25mg (24-HOUR) SR. Tablet PO SCH (09:05)
[2021-09-23] MEDS: meropenem inj 1 GM in normal saline 100ml IV soln 100 ML IV SCH ×2 (09:05→16:59)
[2021-09-23 11:00] VITALS: BP 116/65
--- NOTE | 2021-09-23 14:19 | NUR ---
Initial: Pt admitted w/ UTI, R kidney abscess (which has been drained by IR) and now w/ sepsis per EMR. Pt currently on Regular diet w/ moderately low PO intake, avg 42% x 9 meals which meets approximately 75% of est energy needs and 51% of est protein needs. Pt may benefit from Ensure High Protein TID to help meet increased protein needs. LBM 09/18, pt may benefit from routine bowel care. Noted ht 64in on previous admits making BMI 26 though wt not scaled. Will continue to monitor. Recs: 1. Continue Regular diet as tolerated 2. Ensure High Protein TID; pending MD verification 3. Routine bowel care given 5 day constipation 4. Scaled wts Addendum: 09/23/21 at [address] Amended: Links added.
[2021-09-23] MEDS ORDERED: potassium CL 10mEq/100ml bag 100 ML IV PRN ×2 (17:55→19:00)
[2021-09-23] MEDS ORDERED: potassium Cl 20 mEq SR tablet PO PRN ×3 (17:55→19:00)
[2021-09-23] MEDS ORDERED: magnesium 4gm in 100ml NS 100 ML IV PRN ×2 (17:55→19:00)
[2021-09-23] MEDS ORDERED: magnesium Cl slow-release 64mg tablet PO PRN ×2 (17:55→19:00)
[2021-09-23] MEDS: lactose-reduced food (Ensure High Protein) 237ml bottle PO SCH (18:00)
[2021-09-23] MEDS: potassium Cl 20 mEq SR tablet PO PRN ×2 (18:22→23:01)
--- NOTE | 2021-09-23 18:40 | NUR ---
Patient in room NATE 352. I have received report from JOANNE WILKINSON and had the opportunity to ask questions and assume patient care.
[2021-09-23] MEDS ORDERED: magnesium 2GM in 50ml NS 50 ML IV PRN (19:00)
[2021-09-23] MEDS: K and/or MAG REPLACEMENT MC SCH (20:00)
[2021-09-23] MEDS: traZODone 50mg tablet PO SCH (20:27)
[2021-09-23] MEDS: zolpidem 5mg tablet PO SCH (20:28)
[2021-09-23] MEDS: gabapentin 300mg capsule PO SCH (20:29)
[2021-09-23 23:55] VITALS: BP_SYST 132; BP_SYST 136; BP_DIAS 53; BP_DIAS 70
[2021-09-24] MEDS: meropenem inj 1 GM in normal saline 100ml IV soln 100 ML IV SCH ×2 (00:46→08:09)
[2021-09-24] MEDS: normal saline 1000ml 1,000 ML IV SCH ×2 (05:28→12:30)
[2021-09-24 06:15] LABS: BASOPHILS # (AUTO) 0.1 X10'3 (0-0.2); BASOPHILS % (AUTO) 0.8 % (0-1); EOSINOPHILS # (AUTO) 0.4 X10'3 (0-0.9); EOSINOPHILS % (AUTO) 6.2 % (0-6); HEMATOCRIT 26.8 % (35.0-45.0); HEMOGLOBIN 9.2 g/dl (12.0-16.0); LYMPHOCYTES # (AUTO) 1.7 X10'3 (1.1-4.8); LYMPHOCYTES % (AUTO) 24.1 % (21-51); MEAN CORPUSCULAR HEMOGLOBIN 30.5 PG (27.0-31.0); MEAN CORPUSCULAR HGB CONC 34.5 g/dL (33.0-36.5); MEAN CORPUSCULAR VOLUME 88.4 FL (78-98); MEAN PLATELET VOLUME 7.1 FL (7.4-10.4); MONOCYTES # (AUTO) 0.6 X10'3 (0-0.9); NEUTROPHILS # (AUTO) 4.4 X10'3 (1.8-7.7); NEUTROPHILS % (AUTO) 60.9 % (42-75); PLATELET COUNT 410 X10'3 (140-440); RED BLOOD COUNT 3.03 X10'6 (4.20-5.60); RED CELL DISTRIBUTION WIDTH 13.4 % (11.5-14.5); WHITE BLOOD COUNT 7.2 X10'3 (4.5-11.0)
--- NOTE | 2021-09-24 06:30 | NUR ---
Problems reprioritized. Patient report given, questions answered & plan of care reviewed with LIANE WILKINSON.
[2021-09-24 06:48] LABS: ALANINE AMINOTRANSFERASE 8 U/L (12-78); ALBUMIN 2.1 G/DL (3.4-5.0); ALBUMIN/GLOBULIN RATIO 0.5 (1.1-1.5); ALKALINE PHOSPHATASE 116 IU/L (46-116); ANION GAP 7 (8-16); ASPARTATE AMINO TRANSFERASE 16 U/L (10-37); BILIRUBIN,TOTAL 0.2 MG/DL (0.1-1.0); BLOOD UREA NITROGEN 7 MG/DL (7-18); BUN/CREATININE RATIO 7.6 (6.6-38.0); CALCIUM 8.4 MG/DL (8.5-10.1); CHLORIDE 110 MMOL/L (99-107); CREATININE 0.92 MG/DL (0.40-0.90); GLUCOSE 77 MG/DL (70-104); MAGNESIUM 2.1 MG/DL (1.5-2.4); POTASSIUM 3.7 MMOL/L (3.5-5.1); SODIUM 146 MMOL/L (135-145); TOTAL CARBON DIOXIDE 28.9 MMOL/L (24-32); TOTAL PROTEIN 6.2 G/DL (6.4-8.2); eGFR 62 ML/MIN
--- NOTE | 2021-09-24 06:52 | NUR ---
Patient in room NATE 352. I have received report from octavia dudley rn and had the opportunity to ask questions and assume patient care.
[2021-09-24 08:00] VITALS: BP 100/42
[2021-09-24] MEDS: lactose-reduced food (Ensure High Protein) 237ml bottle PO SCH ×2 (08:00→13:00)
[2021-09-24] MEDS: metoprolol succinate 25mg (24-HOUR) SR. Tablet PO SCH (08:00)
[2021-09-24] MEDS: K and/or MAG REPLACEMENT MC SCH (08:00)
[2021-09-24] MEDS: flecainide 50mg tablet PO SCH (08:09)
[2021-09-24] MEDS: lamoTRIgine 100mg tablet PO SCH (08:09)
[2021-09-24] MEDS: oxybutynin 5mg tablet PO SCH (08:09)
[2021-09-24] MEDS: lactobacillus rhamnosus 10,000 MMU CELLS/CAPSULE PO SCH (08:09)
[2021-09-24] MEDS: docusate sod 100mg capsule PO SCH (08:12)
[2021-09-24] MEDS: pantoprazole 40mg Tablet.DR PO SCH (08:12)
[2021-09-24] MEDS: HYDROcodone/acetaminophen 10/325mg tab PO PRN (08:19)
[2021-09-24] MEDS ORDERED: ERTA1VIA4 IV (10:16)
[2021-09-24] MEDS: iron sucrose complex injection 200 MG in normal saline 100ml IV soln 100 ML IV SCH (10:26)
[2021-09-24 11:00] VITALS: BP 119/57
[2021-09-24] MEDS ORDERED: ertapenem sod inj 1 GM in normal saline 100ml IV soln 100 ML IV SCH (12:00)
--- NOTE | 2021-09-24 12:40 | NUR ---
per SIGRID Oconnell, pt will go home with LULI and have it taken out outpatient.
--- NOTE | 2021-09-24 15:42 | NUR ---
Page Sent PAGER ID: [phone] MESSAGE: [phone] b Lisa, Blood cultures from yesterday were gram positive for cocci in clusters. william [phone]
[2021-09-24 15:51] VITALS: BP 119/66
--- NOTE | 2021-09-24 16:45 | NUR ---
pt is stable for discharge, iv is dc and cannula intact, all discharge info went over with pt and had no further questions, all belongings were gathered and pt was wheeled down to lobby and left in private vehicle. pt was educated on how to empty the LULI drain and who they need to call in order to follow up on the antibiotics and DC of the LULI drain. all this info was included in the discharge provided by Corona. pt had a midline placed ordered by dr wilde to be given home abx and went home with this. will continue care with HH.
== END 2021-09-24 17:05 | disposition home or self-care (01) | DRG 720 ==
LOC: ER 14:06 → SUR 3N 22:30
PROVIDERS: ADMIT Family Medicine; ATTEND Family Medicine
PROC: 0T9030Z Drainage of Right Kidney with Drainage Device, Percutaneous Approach (ICD-10-PCS; principal; 2021-09-21)
DX: A41.9 Sepsis, unspecified organism (principal); N15.1 Renal and perinephric abscess; I13.0 Hypertensive heart and chronic kidney disease with heart failure and stage 1 through stage 4 chronic kidney disease, or unspecified chronic kidney disease; N17.9 Acute kidney failure, unspecified; D63.8 Anemia in other chronic diseases classified elsewhere; E11.22 Type 2 diabetes mellitus with diabetic chronic kidney disease; I50.32 Chronic diastolic (congestive) heart failure; I95.9 Hypotension, unspecified; I48.20 Chronic atrial fibrillation, unspecified; E86.1 Hypovolemia; B96.20 Unspecified Escherichia coli [E. coli] as the cause of diseases classified elsewhere; Z20.822 Contact with and (suspected) exposure to COVID-19; F12.90 Cannabis use, unspecified, uncomplicated; F32.A Depression, unspecified; G89.29 Other chronic pain; K21.9 Gastro-esophageal reflux disease without esophagitis; Z16.24 Resistance to multiple antibiotics; M54.9 Dorsalgia, unspecified; N13.6 Pyonephrosis; F20.9 Schizophrenia, unspecified; J44.9 Chronic obstructive pulmonary disease, unspecified; N18.9 Chronic kidney disease, unspecified; N28.1 Cyst of kidney, acquired; Z79.01 Long term (current) use of anticoagulants; Z86.73 Personal history of transient ischemic attack (TIA), and cerebral infarction without residual deficits; Z87.442 Personal history of urinary calculi; Z88.1 Allergy status to other antibiotic agents; Z98.51 Tubal ligation status; Z82.49 Family history of ischemic heart disease and other diseases of the circulatory system; Z83.3 Family history of diabetes mellitus; Z81.8 Family history of other mental and behavioral disorders; Z79.899 Other long term (current) drug therapy
CPT/HCPCS: 36410; 36415; 49405; 74176; 76770; 80053; 81001; 83540; 83550; 83605; 83735; 83880; 84100; 84145; 85025; 85610; 85730; 87040; 87070; 87075; 87077; 87081; 87088; 87186; 87635; 93005; 96365; 96366; 96375; 99152; 99153; 99285; C1751; C9803; G0378; J1335; J1756; J1885; J1956; J2185; J2250; J2270; J3490; J7030

== ENCOUNTER 2025-07-03 11:24 | Outpatient (CLI) | payer MEDICAID ==
[~2025-07-03 11:24] MED LIST changes: -ASPI-1071 PO; +ASPI-500 PO; +ERTA1VIA4 IV; +FLEC100T35 PO; +GABA-1405 PO; -GABA600T13 PO
--- NOTE | 2025-07-03 15:51 | RADIOLOGY REPORT ---
CLINICAL INFORMATION: VALGUS DEFORMITY, NOT ELSEWHERE CLASSIFIED, LEFT KNEE. TECHNIQUE: Following the intravenous administration of 22.8 mCi technetium 99m- MDP, 3-phase bone scan was performed. Immediate flow images of the bilateral knees were obtained in the anterior and posterior projections. Blood pool images were obtained in the anterior and posterior projections. 3 hour delayed images were obtained in the anterior, posterior, and both lateral projections. COMPARISON: None FINDINGS: There is symmetric uptake bilaterally on the immediate flow images. Blood pool images demonstrate mildly increased uptake adjacent to the left knee prosthesis. Delayed images demonstrate increased activity adjacent to the left knee prosthesis. Milder areas of increased activity in the right knee likely due to arthritic changes. IMPRESSION: 1. Increased activity adjacent to the left knee prosthesis on the blood pool and delayed phases, which is nonspecific and may be normal, particularly in the 1st few years after arthroplasty. Loosening can not be excluded. Correlate with clinical findings. 2. No focal asymmetric activity is seen on the immediate flow images to suggest inflammatory or infectious process.
== END 2025-07-03 23:59 | disposition home or self-care (01) ==
LOC: RAD 11:24
PROVIDERS: ATTEND Orthopaedic Surgery
DX: M21.062 Valgus deformity, not elsewhere classified, left knee (principal); M25.562 Pain in left knee; Z96.652 Presence of left artificial knee joint
CPT/HCPCS: 78315; A9503